=== PATIENT | female | born 2000 | race Caucasian/White ===

== ENCOUNTER 2021-01-12 11:54 | Emergency (ER) | payer BC, SELFPAY ==
--- NOTE | ~2021-01-12 | XR_ITS ---
EXAMINATION: XR HAND, LEFT CLINICAL INFORMATION: Left thumb pain. Trauma. COMPARISON: None TECHNIQUE: PA, lateral, and oblique views of the left hand. FINDINGS: Alignment is normal in the hand and wrist. Bones, joints and soft tissues have a normal appearance. No evidence of fracture or subluxation. No radiopaque foreign body or soft tissue gas. XR/XR hand LT 2V IMPRESSION: Normal left hand.
[2021-01-12 11:57] VITALS: BP 125/85; PULSE 98; RESP 16; TEMP 36.8; O2SAT 98; BMI 23.3
--- NOTE | 2021-01-12 12:55 | ED.EXTPRO ---
HPI - Extremity Problem General Chief complaint: Extremity Injury, Upper Stated complaint: finger pain Time Seen by Provider: 01/12/21 12:06 Source: patient Mode of arrival: ambulatory Limitations: no limitations History of Present Illness HPI Narrative: 20 yo female here with left thumb pain and swelling status post crush injury which occurred today. The patient tells me that her hand got slammed in a door and now she has pain and swelling to her left thumb. Related Data Allergies Allergy/AdvReac Type Severity Reaction Status Date / Time cephalexin [CEPHALEXIN] Allergy Unknown ANGIOEDEMA Unverified 05/24/20 16:58 latex [LATEX] Allergy Unknown THROAT Unverified 05/24/20 16:58 ITCHING montelukast [From SINGULAIR] Allergy Unknown UNKNOWN Unverified 05/24/20 16:58 sertraline [From ZOLOFT] Allergy Unknown UNKNOWN Unverified 05/24/20 16:58 Review of Systems Review of Systems: Yes all other systems are reviewed and are negative Constitutional: Constitutional: Reports no additional constitutional complaints, Denies body ache(s), Denies chills, Denies fever(s), Denies headache(s) and Denies weakness Eyes: Eyes: Reports no additional eye complaints and Denies change in vision ENT: Reports system reviewed and no additional complaints, except as documented, Denies dizziness, Denies headache(s), Denies nasal congestion, Denies nasal discharge and Denies neck pain Cardiovascular: Cardiovascular: Reports no additional cardiovascular complaints, Denies chest pain, Denies leg edema and Denies dyspnea Respiratory: Respiratory: Reports no additional respiratory complaints, Denies cough and Denies dyspnea Gastrointestinal: Gastrointestinal: Reports no additional gastrointestinal complaints, Denies abdominal pain, Denies diarrhea, Denies nausea and Denies vomiting Genitourinary: Genitourinary: Reports no additional female genitourinary complaints and Denies urinary incontinence Musculoskeletal: Musculoskeletal: Reports no additional musculoskeletal complaints, Denies back pain, Reports arthralgias, Reports joint swelling, Denies neck pain, Denies numbness and Denies tingling Integumentary/Breasts: Skin/Breast: Reports system reviewed and no additional complaints, except as docu and Denies rash Neurologic: Reports system reviewed and no additional complaints, except as documented, Denies Abnormal speech present, Denies dizziness, Denies headache(s), Denies numbness, Denies tingling and Denies weakness [facility] Past Medical History Attestation statement: The following information was validated with the patient. Source: old records reviewed and nursing notes reviewed Medical History Anxiety Asthma Endometriosis Fibromyalgia Migraines Orthostatic syncope Vaso-vagal reaction Social History Social History Advance Directives: No Advance Directives Information Provided: No Patient : No Physical Exam Vital Signs: Vital Signs: Last Vital Signs Temp 98.2 F 01/12/21 11:57 Pulse 98 01/12/21 11:57 Resp 16 01/12/21 11:57 BP 125/85 01/12/21 11:57 Pulse Ox 98 01/12/21 11:57 Body Mass Index 23.3 Const: General: cooperative, healthy appearing, comfortable and no acute distress Orientation/consciousness: patient oriented x3 Limitations: no limitations HENMT: Head: Yes normal to inspection Ears: hearing grossly normal bilaterally General nose exam: Normal external nose present Face and sinus: Yes normal facial exam Mouth: Normal oral and palatal mucosa present Throat: Yes posterior oropharynx normal Eyes: General: appearance normal, both eyes and all related structures Pupils: Equal, round and reactive pupils present Neck: Neck: Yes normal visual inspection Chest: Chest palpation & inspection: normal inspection of the chest Resp: Effort & Inspection: normal respiratory effort Auscultation: clear to auscultation bilaterally Cardio: Rate: regular rate Rhythm: regular rhythm Peripheral pulses: Peripheral pulses 2+ throughout GI: Inspection: Yes normal to inspection Palpation (GI): Soft to palpation and nontender Auscultation: normal bowel sounds Back/Spine/Pelvis: Thoracic/Lumbar Spine: thoracic and lumbar spine normal to inspection Skin: General skin exam: no rashes or lesions noted Neuro: General: patient oriented x3, no focal motor deficits and normal sensation to monofilament Cranial nerves: Yes Equal, round and reactive pupils present Cognition (Neuro): normal cognition Speech: No Abnormal speech present Gait exam (Neuro): Normal gait present Motor exam (neuro): 5/5 motor strength present throughout Extrem: Other: There is swelling and bruising to the distal left thumb with a subungual hematoma noted. Patient has pain with flexion and extension of the digit but is able. Neurovascular intact distally General: Yes normal to inspection Course Course Course Narrative: Crush injury to left thumb now with pain, swelling and subungual hematoma. Will need x-rays, trephination of the digit. 1415-x-rays negative for bony abnormality. Successful trephination. Patient was provided a dressing. Reviewed worrisome signs and symptoms such as fever, redness, drainage and when to return to the emergency department. Comfortable with discharge home. Procedures Procedure Narrative Procedure Narrative: Trepination of the left thumb nail with immediate improvement. Pt tolerated well. MDM - Extremity (Nontraumatic) Medical Records Attestation: I reviewed the patient's medical records. Lab Data Attestation: I reviewed the patient's lab results. Imaging Data left hand x-ray: Attestation: I personally reviewed and interpreted this imaging study as follows: Radiologist's impression: EXAMINATION: XR HAND, LEFT CLINICAL INFORMATION: Left thumb pain. Trauma. COMPARISON: None TECHNIQUE: PA, lateral, and oblique views of the left hand. FINDINGS: Alignment is normal in the hand and wrist. Bones, joints and soft tissues have a normal appearance. No evidence of fracture or subluxation. No radiopaque foreign body or soft tissue gas. XR/XR hand LT 2V IMPRESSION: Normal left hand. Discharge Plan Discharge Clinical Impression: Contusion Qualifiers: Encounter type: initial encounter Contusion area: finger Finger: thumb Damage to nail status: with damage Laterality: left Qualified Code(s): S60.112A - Contusion of left thumb with damage to nail, initial encounter Hematoma, subungual, finger Qualifiers: Encounter type: initial encounter Qualified Code(s): S60.10XA - Contusion of unspecified finger with damage to nail, initial encounter Patient Disposition: Home, Self-Care Instructions: Subungual Hematoma (ED) Additional Instructions: Ice to the area, elevation The finger may drain some blood for the next few hours or day. Change the dressing daily as discussed Referrals: Physician,Unknown [Primary Care Provider] - 2 days Interventions: ED Discharge Assessment Last Done: 01/12/21 14:06 Discharge Date/Time: 01/12/21 14:08
== END 2021-01-12 14:08 | disposition home or self-care (01) ==
PROVIDERS: Emergency Provider Emergency Medicine
DX: S60.112A Contusion of left thumb with damage to nail, initial encounter (principal); W23.1XXA Caught, crushed, jammed, or pinched between stationary objects, initial encounter; Y93.89 Activity, other specified; Y92.810 Car as the place of occurrence of the external cause; Y99.9 Unspecified external cause status
CPT/HCPCS: 11740; 73120; 99283; 99284

== ENCOUNTER 2021-03-13 20:10 | Emergency (ER) | payer BC, SELFPAY ==
[2021-03-13 20:28] VITALS: BP 116/63; PULSE 100; RESP 17; TEMP 36.8; O2SAT 99; BMI 22.8
[2021-03-13 20:48] LABS: Glucose Urine UA NEG (NEG); Leukocyte Esterase Urine 2+ (NEG); Nitrite Urine NEG (NEG); PH 6.5 (5.0-8.0); Specific Gravity - Urine 1.015 (1.005-1.025); UACC Culture Trigger YES; Urine Blood 3+ (NEG); Urine Ketones NEG (NEG); Urine Protein TRACE MG/DL (NEG-TRACE)
[2021-03-13 20:56] LABS: Appearance Urine HAZY; Color Urine YELLOW
[2021-03-13 21:00] LABS: Bacteria Urine 2+ /LPF; Squamous Epithelial Cell Urine 1+ /LPF
--- NOTE | 2021-03-13 23:32 | ED.FEMALEGU ---
HPI - Female Genitourinary General Chief complaint: Urogenital-Female Stated complaint: UTI? Time Seen by Provider: 03/13/21 21:44 Source: patient Mode of arrival: ambulatory History of Present Illness HPI Narrative: 20-year-old female with a past medical history of anxiety, asthma, endometriosis, fibromyalgia, hemorrhagic cyst, migraines, vasovagal reaction, presenting to the ED complaining of dysuria and white vaginal discharge x today. Admits was sexually active a few nights ago prior to symptoms beginning. Denies fever, chills, abdominal pain, nausea /vomiting, vaginal bleeding. LMP 02/24/2021 MD elicited complaint: UTI Related Data Previous Rx's Medication Instructions Recorded nitrofurantoin monohyd/m-cryst 100 mg PO Q12H 5 Days #10 cap 03/14/21 [Macrobid] phenazopyridine [Pyridium] 200 mg PO TID PRN #6 tab 03/14/21 Allergies Allergy/AdvReac Type Severity Reaction Status Date / Time cephalexin [CEPHALEXIN] Allergy Intermediate ANGIOEDEMA Verified 03/13/21 20:28 latex [LATEX] Allergy Intermediate THROAT Verified 03/13/21 20:28 ITCHING montelukast [From SINGULAIR] Allergy Intermediate UNKNOWN Verified 03/13/21 20:28 sertraline [From ZOLOFT] Allergy Intermediate UNKNOWN Verified 03/13/21 20:28 Review of Systems Review of Systems: Constitutional: No Fever, No Chills, No Fatigue, No Malaise Cardiovascular: No Chest Pain, No SOB Respiratory: No Cough, No Dyspnea Gastrointestinal: No Nausea, No Vomiting, No Diarrhea, No Constipation, No Abdominal pain Genitourinary: No irregular bleeding, + Dysuria, No Urinary Frequency, No Hematuria, No Flank Pain, No Urinary Flow Changes Musculoskeletal: No joint pain, No Myalgias, No Joint Swelling Skin: No Skin Lesions, No rash Neuro: No Weakness, No Headache Yes all other systems are reviewed and are negative PMFSH Past Medical History Attestation statement: The following information was validated with the patient. Medical History (Updated 03/14/21 @ 00:10 by RADHA Bethea) Anxiety Asthma Endometriosis Fibromyalgia Hemorrhagic cyst Migraines Orthostatic syncope Vaso-vagal reaction Social History Social History Advance Directives: No Advance Directives Information Provided: No Patient : No Physical Exam Vital Signs: Vital Signs: Last Vital Signs Temp 98.2 F 03/13/21 20:28 Pulse 100 03/13/21 20:28 Resp 17 03/13/21 20:28 BP 116/63 03/13/21 20:28 Pulse Ox 99 03/13/21 20:28 Body Mass Index 22.8 Const: General: cooperative, healthy appearing and comfortable Orientation/consciousness: patient oriented x3 Limitations: no limitations HENMT: Head: Yes normal to inspection Ears: hearing grossly normal bilaterally General nose exam: Normal external nose present Face and sinus: Yes normal facial exam Eyes: General: appearance normal, both eyes and all related structures EOM: EOMs intact bilaterally Neck: Neck: Yes normal visual inspection Resp: Effort & Inspection: normal respiratory effort Cardio: Rate: regular rate Heart sounds: S1 normal heart sound present and S2 normal heart sound present GI: Inspection: Yes normal to inspection Palpation (GI): Soft to palpation, nontender, no guarding and not rigid : Other: white /clear vaginal discharge noted on pelvic exam, no vaginal bleeding. No adnexal or CMT. No appreciable masses. Cervical OS closed General: Yes no CVA tenderness Back/Spine/Pelvis: Back: no CVA tenderness Skin: Rashes: no rashes Wounds: no wounds Neuro: General: patient oriented x3 Gait exam (Neuro): Normal gait present Extrem: General: Yes normal to inspection Course Course Course Narrative: - UA with leuk esterase, rbc's, multiple wbc's and bacteria concerning for UTI and STI - patient was tested for STIs, although has angioedema reaction to Keflex >> will be prophylactically treated with IM Gentamicin and 2g p.o. Azithromycin in the ED. Also given 1st dose of Macrobid in the ED patient would like results of her cultures - details of her visit kept confidential, her personal cell phone number for culture results is [phone] MDM - Female Genitourinary MDM Narrative Medical decision making narrative: 20-year-old female with a past medical history of anxiety, asthma, endometriosis, fibromyalgia, hemorrhagic cyst, migraines, vasovagal reaction, presenting to the ED complaining of dysuria and white vaginal discharge x today. On exam VSS, NAD /well-appearing, physical exam as above. Concern for UTI/STI. Low concern for PID plan: UA, STI testing. Patient agreeable to empiric STI testing in the ED today Lab Data Labs: Lab Results 03/13/21 Range/Units 20:41 Urine Color YELLOW Urine Appearance HAZY Urine pH 6.5 (5.0-8.0) Ur Specific [place] 1.015 (1.005-1.025) Urine Protein TRACE (NEG-TRACE) MG/DL Urine Glucose (UA) NEG (NEG) MG/DL Urine Ketones NEG (NEG) MG/DL Urine Blood 3+ H (NEG) Urine Nitrite NEG (NEG) Ur Leukocyte Esterase 2+ H (NEG) Urine RBC 76-150 H (0) /HPF Urine WBC 76-150 H (0-4) /HPF Ur Squamous Epith Cells 1+ /LPF Urine Bacteria 2+ /LPF Discharge Plan Discharge Clinical Impression: Urinary tract infection, Vaginal discharge Patient Disposition: Home, Self-Care Instructions: Urinary Tract Infection in Women (ED), Vaginal Discharge (ED) Additional Instructions: you have a urinary tract infection, Macrobid is an antibiotic, take as prescribed Pyridium will help with urinary discomfort, take as needed Your also tested for sexually transmitted infections including gonorrhea/ chlamydia, Trichomonas, and bacterial vaginosis. You were treated for gonorrhea and chlamydia today in the emergency department You need to refrain from any sexual contact until your cultures have resulted in next couple days, you will be contacted with positive results. Inform her partners of your results of the can be tested and treated as well Consider getting retested for sexually transmitted infections 2-3 weeks after treatment to ensure the infection is gone. You should also go to [facility] to be tested for other sexually transmitted infections we did not test for today Prescriptions: New nitrofurantoin monohyd/m-cryst [Macrobid] 100 mg capsule 100 mg PO Q12H 5 Days Qty: 10 RF: 0 phenazopyridine [Pyridium] 200 mg tablet 200 mg PO TID PRN (Reason: pain) Qty: 6 RF: 0 Referrals: Linda Yeboah MD [Primary Care Provider] - 2 days Juma Hansen MD [Physician] - 1 week Interventions: ED Discharge Assessment Last Done: 03/14/21 00:39 Discharge Date/Time: 03/14/21 00:50
--- NOTE | 2021-03-13 23:39 | PC.NURSE ---
AT PATIENTS REQUEST MOTHER WAS ASKED TO LEAVE ROOM DURING EXAM. MOTHER ESCORTED TO RP ROOM. PELVIC EXAM DONE. CULTURES SENT. PT TOLL WELL. MOTHER ASKED TO RETURN TO ROOM PER PATIENT REQUEST.
[2021-03-14] MEDS: Gentamicin Sulfate 80 MG/2 ML VIAL 240 MG IM (00:04)
[2021-03-14] MEDS: Nitrofurantoin Monohyd/M-Cryst 100 MG CAPSULE PO (00:05)
[2021-03-14] MEDS: Azithromycin 500 MG TABLET 2000 MG PO (00:05)
--- NOTE | 2021-03-14 00:17 | PC.NURSE ---
MOTHER IN WITH PATIENT. PT GAVE THIS NURSE PERMISSION TO TALK WITH MOTHER ABOUT TREATMENT PLAN. MEDS GIVEN. WILL MONITOR.
--- NOTE | 2021-03-14 01:08 | PC.NURSE ---
VITALS TAKEN PRIOR TO D/C P 97, [id number], BP 126/84.
[2021-03-14 02:33] LABS: CT PCR NOT DETECTED (Not Detect.); NG PCR NOT DETECTED (Not Detect.)
[2021-03-14 08:51] LABS: BV Int Neg Control Negative (Negative); BV Int Pos Control Positive (Positive)
== END 2021-03-14 00:50 | disposition home or self-care (01) ==
PROVIDERS: Physician Assistant; Emergency Provider Internal Medicine; PCP Pediatrics Adolescent Medicine
DX: N39.0 Urinary tract infection, site not specified (principal); N89.8 Other specified noninflammatory disorders of vagina
CPT/HCPCS: 36415; 81001; 81003; 87086; 87088; 87186; 87480; 87491; 87510; 87591; 87660; 96372; 99284; J1580

== ENCOUNTER 2022-08-22 12:36 | Outpatient (REF) | payer BC, SELFPAY ==
[2022-08-22 14:32] LABS: Appearance Urine Clear; Color Urine Dark Yellow; Glucose Urine UA Negative (Negative); Leukocyte Esterase Urine Trace (Negative); Nitrite Urine Positive (Negative); PH 6.5 (5.0-9.0); Specific Gravity - Urine 1.025 (1.005-1.025); UMIC TRIGGER UA YES; Urine Blood Negative (Negative); Urine Ketones Negative (Negative); Urine Protein Trace mg/dL (Neg-Trace)
[2022-08-22 14:48] LABS: Bacteria Urine None Seen (None Seen); Calcium Oxalate Crystals Urine Present; Hyaline Casts Urine 0-2 /LPF (0-2); RBC Urine 0-2 /HPF (0-2); WBC Urine 0-5 /HPF (0-5)
== END 2022-08-22 12:37 | disposition home or self-care (01) ==
LOC: HO.LAB 12:36
PROVIDERS: PCP Pediatrics Adolescent Medicine; Visit Provider Pediatrics Adolescent Medicine
DX: R30.0 Dysuria (principal)
CPT/HCPCS: 81001; 87086; 87147

== ENCOUNTER 2023-07-09 11:12 | Outpatient (REF) | payer BC, SELFPAY ==
[2023-07-09 14:05] LABS: Appearance Urine Clear; Color Urine Dark Yellow; Glucose Urine UA Negative (Negative); Leukocyte Esterase Urine Trace (Negative); Nitrite Urine Positive (Negative); PH 6.5 (5.0-9.0); UMIC TRIGGER UA YES; Urine Blood Negative (Negative); Urine Ketones Negative (Negative); Urine Protein Trace mg/dL (Neg-Trace)
[2023-07-09 14:17] LABS: Bacteria Urine 1+ (None Seen); Hyaline Casts Urine 0-2 /LPF (0-2); RBC Urine 0-2 /HPF (0-2)
== END 2023-07-09 11:13 | disposition home or self-care (01) ==
LOC: HO.LAB 11:12
PROVIDERS: PCP Pediatrics Adolescent Medicine; Visit Provider Pediatrics Adolescent Medicine
DX: R30.0 Dysuria (principal)
CPT/HCPCS: 81001; 81003; 87086

== ENCOUNTER 2024-01-02 18:59 | Emergency (ER) | payer SELFPAY ==
[2024-01-02 19:22] VITALS: BP 146/89; PULSE 96; RESP 16; TEMP 36.6; O2SAT 100; BMI 23.2
--- NOTE | 2024-01-02 19:26 | ED_ITS ---
HPI - Female Genitourinary General Chief complaint: Urogenital-Female Stated complaint: ?UTI Time Seen by Provider: 01/02/24 21:00 Source: patient, RN notes reviewed and old records reviewed Mode of arrival: ambulatory Limitations: no limitations History of Present Illness HPI Narrative: 23-year-old female presents for evaluation of burning with urination and left flank pain. Patient reports that she started with lower abdominal pain, burning with urination and urinary frequency 1 week ago. She states that she has been using azo which has been masking the symptoms somewhat but her symptoms are worsening She reports continued lower abdominal pain and worsening left flank pain. Denies any fevers, chills She has no other complaints or concerns at this time Denies any vaginal bleeding or discharge Related Data Previous Rx's ?Medication ?Instructions ?Recorded nitrofurantoin 100 mg PO Q12H 5 days #10 caps 03/14/21 monohydrate/macrocrystals 100 mg capsule (Macrobid) phenazopyridine 200 mg tablet 200 mg PO TID PRN pain 6 doses #6 03/14/21 (Pyridium) tabs sulfamethoxazole 800 1 tab PO Q12H #14 tabs 01/02/24 mg-trimethoprim 160 mg tablet (Bactrim DS) doxycycline hyclate 100 mg capsule 100 mg PO BID 7 days #14 caps 01/06/24 Allergies Allergy/AdvReac Type Severity Reaction Status Date / Time cephalexin [CEPHALEXIN] Allergy Intermediate ANGIOEDEMA Verified 01/02/24 19:25 latex [LATEX] Allergy Intermediate THROAT Verified 01/02/24 19:25 ITCHING montelukast [From SINGULAIR] Allergy Intermediate UNKNOWN Verified 01/02/24 19:25 sertraline [From ZOLOFT] Allergy Intermediate UNKNOWN Verified 01/02/24 19:25 Review of Systems 2 Constitutional: Constitutional: Denies body ache(s), Denies chills and Denies fever(s) Eyes: Eyes: Denies blurry vision ENT: Denies sore throat Cardiovascular: Cardiovascular: Denies chest pain Gastrointestinal: Gastrointestinal: Reports abdominal pain, Denies nausea and Denies vomiting Genitourinary: Genitourinary: Reports dysuria and Reports flank pain Musculoskeletal: Musculoskeletal: Denies back pain Integumentary/Breasts: Skin/Breast: Denies rash PMFSH Past Medical History Medical History (Updated 01/03/24 @ 00:00 by Estephania Daemon) Hemorrhagic cyst Endometriosis Migraines Fibromyalgia Anxiety Asthma Orthostatic syncope Vaso-vagal reaction Social History Social History (System 10/02/21 @ 14:27 by Sally Luna) Advance Directives: No Advance Directives Information Provided: No Physical Exam 2 Vital Signs: Vital Signs: Last Vital Signs Temp 98 F 01/02/24 21:23 Pulse 88 01/02/24 21:23 Resp 18 01/02/24 21:23 BP 140/78 H 01/02/24 21:23 Pulse Ox 100 01/02/24 21:23 O2 Del Method Room Air 01/02/24 21:23 BMI result Body Mass Index 23.2 Const: General: healthy appearing, comfortable, no acute distress, alert and awake Nutritional Appearance: well nourished Orientation/consciousness: p atient oriented x3 HEENT: Head: Yes normocephalic and Yes atraumatic Eyes: Eyelids: Yes eyelids normal Conjunctivae: conjunctivae normal S clerae: sclerae normal Corneas: corneas normal Pupils: Equal, round and reactive pupils present EOM: EOMs intact bilaterally Neck: Neck: Yes full ROM Resp: Effort & Inspection: normal respiratory effort, able to speak in complete sentences and not labored GI: Inspection: No distended Palpation (GI): Soft to palpation, not firm, Tenderness to palpation present (GI) suprapubicly, no guarding and not rigid Skin: General skin exam: elasticity normal Neuro: General: patient oriented x3 Cranial nerves: Yes Equal, round and reactive pupils present and Yes Bilaterally intact EOM present Cognition (Neuro): normal cognition Course Course Course Narrative: RME performed by Naina Benton PA-C. Patient is a 23 year old assigned female at presenting to the emergency department with dysuria and bilateral flank pain. Patient states that she gets frequent urinary tract infections. Detailed physical exam and review of systems are deferred to the shingle shearing machine operator. Labs ordered. Patient placed back in the waiting room pending room availability and results. Reevaluation(s) Reevaluation #1: + CT patient was sent doxycycline I did discuss these results with patient educated her on safe sexual practices, treatment and [facility], TAB history. I did also report on the [place] department of public [facility] [place] of Infectious Disease and laboratory studies page online this positive result. I did not treat her for gonorrhea as she did test negative for this. Time: 17:30 Medications Administered Discontinued Medications Generic Name Dose Route Start Last Admin Trade Name Kumar PRN Reason Stop Dose Admin Trimethoprim/Sulfamethoxazole 1 tab 01/02/24 21:15 01/02/24 21:22 Sulfamethox/Trimeth 800/160 Tablet PO 01/02/24 21:16 1 tab ONCE ONE Administration Medical Decision Making Medical Decision Making [facility] Narrative: 23-year-old female presents for evaluation of UTI symptoms, burning with urination and more recently flank pain. Clinically she has pyelonephritis. She has not septic. She has no leukocytosis. Her renal function within normal limits. She is slightly hypertensive which may related to her level of discomfort. Will discharge the patient with 1 week's course of Bactrim. She has an allergy to cephalosporins Differential Diagnosis Differential Diagnoses: The differential diagnosis associated with the presentation includes UTI Pyelonephritis PID less likely Flank pain Admission/Observation Consideration of admission/observation: Escalation of care including admission/observation considered Consider admission for pyelonephritis, but the patient is afebrile, not septic and is able to tolerate p.o. Lab Data [facility] Lab Attestation statement: I reviewed the patient's lab results. See above 01/02/24 19:39 01/02/24 19:39 Labs: Lab Results 01/02/24 01/02/24 Range/Units 19:39 19:40 WBC 10.8 (4.8-10.8) X10*3/uL RBC 4.75 (4.20-5.50) X10*6/uL Hgb 14.5 (12.0-16.0) g/dl Hct 41.6 (37.0-47.0) % MCV 87.6 (80.0-98.0) fL MCH 30.5 (27.0-33.0) pg MCHC 34.9 (31.0-35.0) g/dl RDW 12.4 (11.0-16.0) % Plt Count 230 (160-400) X10*3/uL MPV 10.4 (9.4-12.3) fL Immature Gran % (Auto) 0.2 (0.0-0.4) % Neut % (Auto) 62.1 (45-73) % Lymph % (Auto) 29.6 (20-40) % [place] % (Auto) 7.0 (2-11) % Eos % (Auto) 0.6 (0-4) % Baso % (Auto) 0.5 (0-2) % Lymph # (Auto) 3.2 (1.2-4.9) X10*3/uL [place] # (Auto) 0.8 (0.1-1.2) X10*3/uL Eos # (Auto) 0.1 (0.0-0.4) X10*3/uL Baso # (Auto) 0.1 (0.0-0.2) X10*3/uL Abs Immat Gran (auto) 0.02 (0.00-0.03) X10*3/uL Absolute Neuts (auto) 6.7 (2.0-8.3) x10*3/uL Absolute Nucleated RBC 0.000 (0.0-0.012) X10*3/uL Nucleated RBC % (auto) 0.0 (0.0-0.2) /100WBC Sodium 141 (135-145) mmol/L Potassium 3.7 (3.3-5.1) mmol/L Chloride 105 (96-108) mmol/L Carbon Dioxide 27 (22-29) mmol/L Anion Gap 13 (12-20) BUN 13 (9-16) mg/dL Creatinine 0.84 (0.5-1.4) mg/dL Estim Creat Clear Calc 94.5 Estimated GFR > 60 Random Glucose 84 (60-115) mg/dL Calcium 9.8 (8.4-10.2) mg/dL Magnesium 2.2 (1.6-2.6) mg/dL Total Bilirubin 1.0 (0.0-1.0) mg/dL AST 22 (5-31) U/L ALT 23 (0-31) U/L Alkaline Phosphatase 72 (39-117) U/L Total Protein 8.0 (6.5-8.0) g/dL Albumin 4.8 (3.5-5.0) g/dL Urine Color Dark Yellow Urine Appearance Clear Urine pH 6.0 (5.0-9.0) Ur Specific [place] 1.010 (1.005-1.025) Urine Protein Negative (Neg-Trace) mg/dL Urine Glucose (UA) Negative (Negative) mg/dL Urine Ketones Negative (Negative) mg/dL Urine Blood Trace H (Negative) Urine Nitrite Positive H (Negative) Ur Leukocyte Esterase Moderate (2+) H (Negative) Urine RBC 0-2 (0-2) /HPF Urine WBC 21-50 (0-5) /HPF Ur Squamous Epith Cells 0-2 (0-2) /HPF Urine Bacteria None Seen (None Seen) Hyaline Casts 0-2 (0-2) /LPF Chlam trachomat DNA PCR DETECTED A (Not Detect.) N.gonorrhoeae DNA (PCR) NOT DETECTED (Not Detect.) Discharge Plan Discharge Clinical Impression: Pyelonephritis Patient Disposition: Home, Self-Care Instructions: Kidney Infection (ED) Additional Instructions: Take Bactrim twice daily for the next 7 days Drink lots of fluids Follow-up with your primary doctor Return for new or worsening symptoms, especially you develop any fevers Prescriptions: New sulfamethoxazole-trimethoprim [Bactrim DS] 800-160 mg tablet 1 tab PO Q12H Qty: 14 0RF doxycycline hyclate 100 mg capsule 100 mg PO BID 7 Days Qty: 14 0RF No Action nitrofurantoin monohyd/m-cryst [Macrobid] 100 mg capsule 100 mg PO Q12H 5 Days Qty: 10 0RF Rx Instructions: must administer with a meal/food phenazopyridine [Pyridium] 200 mg tablet 200 mg PO TID PRN (Reason: pain) Qty: 6 0RF Stand Alone Forms: Work/School Release Interventions: ED Discharge Assessment Last Done: 01/02/24 21:23 Discharge Date/Time: 01/02/24 21:26 Print Language: Romanian
[2024-01-02 19:46] LABS: MANUAL DIFF FLAG NO
[2024-01-02 19:48] LABS: Appearance Urine Clear; Color Urine Dark Yellow; Glucose Urine UA Negative (Negative); Leukocyte Esterase Urine Moderate (2+) (Negative); Nitrite Urine Positive (Negative); UMIC TRIGGER UACC YES; Urine Blood Trace (Negative); Urine Ketones Negative (Negative); Urine Protein Negative (Neg-Trace)
[2024-01-02 19:49] LABS: Basophils Absolute Auto 0.1 X10*3/uL (0.0-0.2); Basophils Percent Auto 0.5 % (0-2); Eosinophils Absolute Auto 0.1 X10*3/uL (0.0-0.4); Eosinophils Percent Auto 0.6 % (0-4); Hematocrit 41.6 % (37.0-47.0); Hemoglobin 14.5 g/dl (12.0-16.0); Imm Gran Abs Auto 0.02 X10*3/uL (0.00-0.03); Imm Gran Pct Auto 0.2 % (0.0-0.4); Lymphocytes Absolute Auto 3.2 X10*3/uL (1.2-4.9); Lymphocytes Percent Auto 29.6 % (20-40); Mean Corpuscular HGB Conc 34.9 g/dl (31.0-35.0); Mean Corpuscular Hemoglobin 30.5 pg (27.0-33.0); Mean Corpuscular Volume 87.6 fL (80.0-98.0); Mean Platelet Volume 10.4 fL (9.4-12.3); Monocytes Absolute Auto 0.8 X10*3/uL (0.1-1.2); Neutrophils Absolute Auto 6.7 x10*3/uL (2.0-8.3); Neutrophils Percent Auto 62.1 % (45-73); Platelet Count 230 X10*3/uL (160-400); Red Blood Count 4.75 X10*6/uL (4.20-5.50); Red Cell Distribution Width 12.4 % (11.0-16.0); White Blood Count 10.8 X10*3/uL (4.8-10.8)
[2024-01-02 19:59] LABS: Bacteria Urine None Seen (None Seen); Hyaline Casts Urine 0-2 /LPF (0-2); RBC Urine 0-2 /HPF (0-2); Squamous Epithelial Cell Urine 0-2 /HPF (0-2); UACC Culture Trigger YES; WBC Urine 21-50 /HPF (0-5)
[2024-01-02 20:02] LABS: Alanine Aminotransferase 23 U/L (0-31); Albumin Level 4.8 g/dL (3.5-5.0); Alkaline Phosphatase 72 U/L (39-117); Anion Gap 13 (12-20); Aspartate Amino Transferase 22 U/L (5-31); Blood Urea Nitrogen 13 mg/dL (9-16); Calcium 9.8 mg/dL (8.4-10.2); Carbon Dioxide 27 mmol/L (22-29); Chloride 105 mmol/L (96-108); Creatinine Clr Calc Pharmacy 94.5; Estimated Glomerular Filt Rate > 60; Glucose Random 84 mg/dL (60-115); Magnesium 2.2 mg/dL (1.6-2.6); Potassium 3.7 mmol/L (3.3-5.1); Sodium 141 mmol/L (135-145)
[2024-01-02 20:24] VITALS: BP 140/78; PULSE 88; RESP 18; TEMP 36.6; O2SAT 100
[2024-01-02] MEDS: Sulfamethox/Trimeth 800/160 TABLET 1 TAB PO (21:22)
[2024-01-02 21:23] VITALS: BP 140/78; PULSE 88; RESP 18; TEMP 36.6; O2SAT 100
[2024-01-03 01:15] LABS: CT PCR DETECTED (Not Detect.); NG PCR NOT DETECTED (Not Detect.)
== END 2024-01-02 21:26 | disposition home or self-care (01) ==
PROVIDERS: Physician Assistant Medical; Emergency Provider Internal Medicine
DX: N12 Tubulo-interstitial nephritis, not specified as acute or chronic (principal); R30.0 Dysuria
CPT/HCPCS: 0353U; 36415; 80053; 81001; 83735; 85025; 87086; 99283

== ENCOUNTER 2024-07-23 22:30 | Emergency (ER) | payer BC, SELFPAY ==
--- NOTE | ~2024-07-23 | US_ITS ---
EXAMINATION: US OBSTETRICAL ULTRASOUND CLINICAL INFORMATION: Abdominal pain, cramping. Spotting. COMPARISON: None available. TECHNIQUE: Transabdominal and endovaginal grayscale ultrasonography of the pelvis. FINDINGS: A gestational sac in a fundal location is identified in within the uterus. A yolk sac is identified. No pole visualized. No subchorionic fluid collections identified. Mean gestational sac diameter is 1.11 cm (5 week 6 day). No myometrial lesions noted. The right ovary measures 2.5 cm x 2.6 x 2.1 cm. The left ovary measures 2.07 x 2.1 x 2.2 cm. The ovaries are normal in grayscale appearance. No abnormal free peritoneal fluid collections identified. cardiac activity is not identified possibly secondary to early gestation. US/US OB pelvic and transvaginal IMPRESSION: *Single fundal implantation intrauterine gestation, sonographic estimated gestational age 5 weeks 6 day. *Abnormal appearance of the ovaries. *No abnormal free intraperitoneal fluid identified. Electronically signed by: Hermilo Melissa MD 07/24/2024 01:34 AM [facility]
[2024-07-23 22:44] VITALS: BP 139/89; PULSE 76; RESP 16; TEMP 36.9; O2SAT 100; BMI 23.8
[2024-07-23 23:02] LABS: Appearance Urine Clear; Color Urine Yellow; Glucose Urine UA Negative (Negative); Leukocyte Esterase Urine Trace (Negative); Nitrite Urine Negative (Negative); PH 6.5 (5.0-9.0); UMIC TRIGGER UACC YES; Urine Blood Negative (Negative); Urine Ketones Negative (Negative); Urine Protein Negative (Neg-Trace)
[2024-07-23 23:05] LABS: UPreg QC Valid YES; Urine Pregnancy POSITIVE (NEGATIVE)
[2024-07-23 23:07] LABS: Bacteria Urine Trace (None Seen); Hyaline Casts Urine 0-2 /LPF (0-2); RBC Urine 0-2 /HPF (0-2); WBC Urine 0-5 /HPF (0-5)
[2024-07-23 23:14] LABS: MANUAL DIFF FLAG NO
[2024-07-23 23:15] LABS: Basophils Percent Auto 0.5 % (0-2); Eosinophils Absolute Auto 0.1 X10*3/uL (0.0-0.4); Eosinophils Percent Auto 1.6 % (0-4); Hematocrit 36.6 % (37.0-47.0); Hemoglobin 12.9 g/dl (12.0-16.0); Imm Gran Abs Auto 0.02 X10*3/uL (0.00-0.03); Imm Gran Pct Auto 0.2 % (0.0-0.4); Lymphocytes Absolute Auto 3.3 X10*3/uL (1.2-4.9); Lymphocytes Percent Auto 40.9 % (20-40); Mean Corpuscular HGB Conc 35.2 g/dl (31.0-35.0); Mean Corpuscular Hemoglobin 31.1 pg (27.0-33.0); Mean Corpuscular Volume 88.2 fL (80.0-98.0); Monocytes Absolute Auto 0.8 X10*3/uL (0.1-1.2); Monocytes Percent Auto 9.5 % (2-11); Neutrophils Absolute Auto 3.8 x10*3/uL (2.0-8.3); Neutrophils Percent Auto 47.3 % (45-73); Platelet Count 196 X10*3/uL (160-400); Red Blood Count 4.15 X10*6/uL (4.20-5.50); Red Cell Distribution Width 12.1 % (11.0-16.0); White Blood Count 8.1 X10*3/uL (4.8-10.8)
[2024-07-23 23:32] LABS: Anion Gap 11 (12-20); Blood Urea Nitrogen 12 mg/dL (9-16); Calcium 9.4 mg/dL (8.4-10.2); Carbon Dioxide 22 mmol/L (22-29); Chloride 108 mmol/L (96-108); Creatinine Clr Calc Pharmacy 113.4; Estimated Glomerular Filt Rate > 60; Glucose Random 83 mg/dL (60-115); Potassium 3.5 mmol/L (3.3-5.1); Sodium 137 mmol/L (135-145)
[2024-07-23 23:50] LABS: HCG Quantitative 16441 mIU/mL
--- NOTE | 2024-07-24 00:10 | ED_ITS ---
HPI - General Adult General Chief complaint: General Medical Stated complaint: just found she's /having cramping Time Seen by Provider: 07/23/24 23:54 Source: patient and family Mode of arrival: ambulatory Limitations: no limitations History of Present Illness ED Provider: Dr. Shelly Bustamante HPI narrative: Patient comes to the emergency room accompanied by her significant other. Patient states that yesterday she found out that she is . Patient states that she has noticed that over last 2 weeks she has been having intermittently cramping and occasional vaginal spotting. Patient states that the last time she had her menstrual period was June 11. Patient states this is the 1st time that she is known to be . Denies any significant abdominal pain other than the cramping. Related Data Previous Rx's ?Medication ?Instructions ?Recorded nitrofurantoin 100 mg PO Q12H 5 days #10 caps 03/14/21 monohydrate/macrocrystals 100 mg capsule (Macrobid) phenazopyridine 200 mg tablet 200 mg PO TID PRN pain 6 doses #6 03/14/21 (Pyridium) tabs sulfamethoxazole 800 1 tab PO Q12H #14 tabs 01/02/24 mg-trimethoprim 160 mg tablet (Bactrim DS) doxycycline hyclate 100 mg capsule 100 mg PO BID 7 days #14 caps 01/06/24 Allergies Allergy/AdvReac Type Severity Reaction Status Date / Time cephalexin [CEPHALEXIN] Allergy Intermediate ANGIOEDEMA Verified 07/23/24 22:46 latex [LATEX] Allergy Intermediate THROAT Verified 07/23/24 22:46 ITCHING montelukast [From SINGULAIR] Allergy Intermediate UNKNOWN Verified 07/23/24 22:46 sertraline [From ZOLOFT] Allergy Intermediate UNKNOWN Verified 07/23/24 22:46 Review of Systems 2 Review of Systems: Constitutional : No Weight loss, No Fever, No Chills, No Night Sweats, No Fatigue, No Malaise ENT/Mouth : No Hearing loss, No Ear Pain, No Nasal Congestion, No Sinus Pain, No Hoarseness, No sore throat, No Rhinorrhea, No Swallowing Difficulty Eyes: No Eye Pain, No Swelling, No Redness, No Foreign Body, No Discharge, No Vision Changes Cardiovascular : No Chest Pain, No SOB, No Dyspnea on Exertion, No Orthopnea, No Edema, No Palpitations Respiratory : No Cough, No Sputum, No Wheezing, No Smoke Exposure, No Dyspnea Gastrointestinal : No Nausea, No Vomiting, No Diarrhea, No Constipation, complaining of abdominal cramping Genitourinary : Complaining of vaginal spotting, No Dysuria, No Urinary Frequency, No Hematuria, No Urinary Incontinence, No Urgency, No Flank Pain, No Urinary Flow Changes, No Hesitancy Musculoskeletal : No joint pain, No Myalgias, No Joint Swelling Skin : No Skin Lesions, No rash Neuro : No Weakness, No Numbness, No Paresthesias, No Loss of Consciousness, No Dizziness, No Headache Psych : No Anxiety/Panic, No Depression, No SI/HI/AH/VH, No Social Issues, Heme/Lymph: No Bruising, No Bleeding,No Lymphadenopathy Endocrine : No Polyuria, No Polydipsia, No Temperature Intolerance PMFSH Past Medical History Medical History Hemorrhagic cyst Endometriosis Migraines Fibromyalgia Anxiety Asthma Orthostatic syncope Vaso-vagal reaction Social History Social History (System 10/02/21 @ 14:27 by Sally Luna) Advance Directives: No Advance Directives Information Provided: No Do you have a plan to hurt others: No Plan Physical Exam ED Vital Signs: Vital Signs - 24 hr 07/23/24 22:44 Temperature 98.5 F Pulse Rate 76 Respiratory Rate 16 Blood Pressure 139/89 Pulse Oximetry 100 Oxygen Delivery Method Room Air BMI result Body Mass Index 23.8 Const Other: Appearance: Alert. Oriented X3. No acute distress. Eyes: Pupils equal, round and reactive to light. ENT: Pharynx normal. Neck: Normal inspection. Neck supple. No lymph nodes noted. No crepitus CVS: Normal heart rate and rhythm. Pulses normal. Normal S1 and S2 Respiratory: No respiratory distress. Breath sounds normal. No Wheezing. No rales Abdomen: Soft and nontender. No rigidity. No distention. : Cervix is closed, there is no blood present, no abnormal vaginal discharge. Skin: Skin warm and dry. Normal skin color. Normal skin turgor. Extremities: No lower extremity edema. No Lacerations. No Rash Neuro: Oriented X 3. No motor deficit. No sensory deficit. Moving all extremities. No slurred speech. CN 2 through 12 grossly intact Psych: calm, cooperative, normal affect Medical Decision Making Medical Decision Making [facility] Narrative: My interpretation of labs: Patient's white blood cell count 8.1, chemistry within normal limits, beta HCG 16,441. -reviewing patient's serology reports, earlier this year patient had chlamydia. During the pelvic exam, we obtained serology test for gonorrhea, chlamydia, bacterial vaginosis and Trichomonas -OB ultrasound shows an intrauterine , gestational age of 5 weeks 6 days., no pole or heart rate dizzy early dates. Patient's blood type, O negative -I discussed the patient with Dr. Jade khalil whether patient should be getting RhoGAM. Recommendations: Check for antibody screen, if negative, proceed with RhoGAM. Patient's antibody screen was negative. -I discussed the above-mentioned with the patient, patient received RhoGAM IM -patient's urinalysis shows trace leukocyte esterase with a high amount of squamous epithelial cells, negative for nitrites, no white blood cells, UTI negative -patient states that today she picked up from the pharmacy vitamins -patient states that she has not been vomiting Differential Diagnosis Differential Diagnoses: The differential diagnosis associated with the presentation includes (Early , threatened ) Lab Data [facility] Lab Attestation statement: I reviewed the patient's lab results. 07/23/24 23:10 07/23/24 23:10 Labs: Lab Results 07/23/24 07/23/24 07/24/24 Range/Units 22:55 23:10 02:26 WBC 8.1 (4.8-10.8) X10*3/uL RBC 4.15 L (4.20-5.50) X10*6/uL Hgb 12.9 (12.0-16.0) g/dl Hct 36.6 L (37.0-47.0) % MCV 88.2 (80.0-98.0) fL MCH 31.1 (27.0-33.0) pg MCHC 35.2 H (31.0-35.0) g/dl RDW 12.1 (11.0-16.0) % Plt Count 196 (160-400) X10*3/uL MPV 10.0 (9.4-12.3) fL Immature Gran % (Auto) 0.2 (0.0-0.4) % Neut % (Auto) 47.3 (45-73) % Lymph % (Auto) 40.9 H (20-40) % [place] % (Auto) 9.5 (2-11) % Eos % (Auto) 1.6 (0-4) % Baso % (Auto) 0.5 (0-2) % Lymph # (Auto) 3.3 (1.2-4.9) X10*3/uL [place] # (Auto) 0.8 (0.1-1.2) X10*3/uL Eos # (Auto) 0.1 (0.0-0.4) X10*3/uL Baso # (Auto) 0.0 (0.0-0.2) X10*3/uL Abs Immat Gran (auto) 0.02 (0.00-0.03) X10*3/uL Absolute Neuts (auto) 3.8 (2.0-8.3) x10*3/uL Absolute Nucleated RBC 0.000 (0.0-0.012) X10*3/uL Nucleated RBC % (auto) 0.0 (0.0-0.2) /100WBC Sodium 137 (135-145) mmol/L Potassium 3.5 (3.3-5.1) mmol/L Chloride 108 (96-108) mmol/L Carbon Dioxide 22 (22-29) mmol/L Anion Gap 11 L (12-20) BUN 12 (9-16) mg/dL Creatinine 0.70 (0.5-1.4) mg/dL Estim Creat Clear Calc 113.4 Estimated GFR > 60 Random Glucose 83 (60-115) mg/dL Calcium 9.4 (8.4-10.2) mg/dL Total Bilirubin 1.0 (0.0-1.0) mg/dL Direct Bilirubin 0.4 (0.0-0.5) mg/dL AST 24 (5-31) U/L ALT 24 (0-31) U/L Alkaline Phosphatase 69 (39-117) U/L Total Protein 7.0 (6.5-8.0) g/dL Albumin 4.3 (3.5-5.0) g/dL Beta HCG, Quant 62302 mIU/mL Urine Color Yellow Urine Appearance Clear Urine pH 6.5 (5.0-9.0) Ur Specific [place] 1.010 (1.005-1.025) Urine Protein Negative (Neg-Trace) mg/dL Urine Glucose (UA) Negative (Negative) mg/dL Urine Ketones Negative (Negative) mg/dL Urine Blood Negative (Negative) Urine Nitrite Negative (Negative) Ur Leukocyte Esterase Trace H (Negative) Urine RBC 0-2 (0-2) /HPF Urine WBC 0-5 (0-5) /HPF Ur Squamous Epith Cells 6-10 (0-2) /HPF Urine Bacteria Trace (None Seen) Hyaline Casts 0-2 (0-2) /LPF Urine Test POSITIVE H (NEGATIVE) Blood Type O Negative O Negative Antibody Screen NEGATIVE Independent Interpretation I performed an independent interpretation of an: Ultrasound Interpretation: A gestational sac in a fundal location is identified in within the uterus. A yolk sac is identified. No pole visualized. No subchorionic fluid collections identified. Mean gestational sac diameter is 1.11 cm (5 week 6 day). No myometrial lesions noted. The right ovary measures 2.5 cm x 2.6 x 2.1 cm. The left ovary measures 2.07 x 2.1 x 2.2 cm. The ovaries are normal in grayscale appearance. No abnormal free peritoneal fluid collections identified. cardiac activity is not identified possibly secondary to early gestation. Critical Care Time Critical Care Time Critical Care Time: Yes Total Critical Care Time: 45 Attestation: I have personally provided critical care time. Time includes review of lab data, radiology results, discussion with consultants, and monitoring for potential decompensation. Intervention performed as documented. Discharge Plan Discharge Clinical Impression: Abdominal pain during Patient Disposition: Home, Self-Care Instructions: Abdominal Pain in (ED) Additional Instructions: Please follow-up with your primary care physician tomorrow. If you have any worsening or new symptoms, please return to the emergency room or call 911 Prescriptions: No Action nitrofurantoin monohyd/m-cryst [Macrobid] 100 mg capsule 100 mg PO Q12H 5 Days Qty: 10 0RF Rx Instructions: must administer with a meal/food phenazopyridine [Pyridium] 200 mg tablet 200 mg PO TID PRN (Reason: pain) Qty: 6 0RF sulfamethoxazole-trimethoprim [Bactrim DS] 800-160 mg tablet 1 tab PO Q12H Qty: 14 0RF doxycycline hyclate 100 mg capsule 100 mg PO BID 7 Days Qty: 14 0RF Referrals: Juma Hansen MD [Physician] - Print Language: Sinhala
--- NOTE | 2024-07-24 00:13 | MHC.EDTECH ---
This tech took over care of patient at 2300,rounded and introduced self to patient,assisted with pelvic exam at this time,swabs obtained and sent to lab,pt tolerated procedure well,pt appears comfortable at this time,boyfriend at bedside call holley in reach
[2024-07-24 00:15] LABS: Alanine Aminotransferase 24 U/L (0-31); Albumin Level 4.3 g/dL (3.5-5.0); Alkaline Phosphatase 69 U/L (39-117); Aspartate Amino Transferase 24 U/L (5-31); Bilirubin Direct 0.4 mg/dL (0.0-0.5)
[2024-07-24] MEDS: Rho(D) Immune Globulin 300 MCG SYRINGE IM (03:59)
[2024-07-24 04:16] VITALS: BP 127/78; PULSE 72; RESP 18; TEMP 36.9; O2SAT 99
[2024-07-24 14:16] LABS: Bacterial Vaginosis PCR NEGATIVE (Negative); Candida Group PCR DETECTED (Not Detect); Candida glab krusei PCR NOT DETECTED (Not Detect); Trichomonas vaginalis PCR NOT DETECTED (Not Detect)
[2024-07-24 14:46] LABS: CT PCR DETECTED (Not Detect.); NG PCR NOT DETECTED (Not Detect.)
== END 2024-07-24 04:18 | disposition home or self-care (01) ==
PROVIDERS: Emergency Provider Emergency Medicine; PCP Pediatrics Adolescent Medicine
DX: O98.811 Other maternal infectious and parasitic diseases complicating pregnancy, first trimester (principal); A74.9 Chlamydial infection, unspecified; R10.2 Pelvic and perineal pain; Z3A.01 Less than 8 weeks gestation of pregnancy; Z79.899 Other long term (current) drug therapy
CPT/HCPCS: 0352U; 36415; 76801; 76817; 80048; 80076; 81001; 81003; 81025; 84702; 85025; 86850; 86900; 86901; 87491; 87591; 96372; 99284; J2790

== ENCOUNTER 2024-07-29 06:27 | Emergency (ER) | payer BC, SELFPAY ==
[2024-07-29 06:47] VITALS: BP 128/87; PULSE 90; RESP 20; TEMP 37.1; O2SAT 99; BMI 23.8
[2024-07-29 07:25] LABS: MANUAL DIFF FLAG NO
[2024-07-29 07:27] LABS: Basophils Percent Auto 0.5 % (0-2); Eosinophils Absolute Auto 0.1 X10*3/uL (0.0-0.4); Eosinophils Percent Auto 1.3 % (0-4); Hematocrit 39.8 % (37.0-47.0); Hemoglobin 14.3 g/dl (12.0-16.0); Imm Gran Abs Auto 0.02 X10*3/uL (0.00-0.03); Imm Gran Pct Auto 0.3 % (0.0-0.4); Lymphocytes Absolute Auto 2.3 X10*3/uL (1.2-4.9); Lymphocytes Percent Auto 36.6 % (20-40); Mean Corpuscular HGB Conc 35.9 g/dl (31.0-35.0); Mean Corpuscular Hemoglobin 31.3 pg (27.0-33.0); Mean Corpuscular Volume 87.1 fL (80.0-98.0); Mean Platelet Volume 10.1 fL (9.4-12.3); Monocytes Absolute Auto 0.6 X10*3/uL (0.1-1.2); Monocytes Percent Auto 9.2 % (2-11); Neutrophils Absolute Auto 3.3 x10*3/uL (2.0-8.3); Neutrophils Percent Auto 52.1 % (45-73); Platelet Count 190 X10*3/uL (160-400); Red Blood Count 4.57 X10*6/uL (4.20-5.50); Red Cell Distribution Width 12.1 % (11.0-16.0); White Blood Count 6.3 X10*3/uL (4.8-10.8)
[2024-07-29 07:30] LABS: Appearance Urine Clear; Color Urine Yellow; Glucose Urine UA Negative (Negative); Leukocyte Esterase Urine Negative (Negative); Nitrite Urine Negative (Negative); Specific Gravity - Urine <= 1.005 (1.005-1.025); Urine Blood Negative (Negative); Urine Ketones Trace mg/dL (Negative); Urine Protein Negative (Neg-Trace)
[2024-07-29 07:46] LABS: Bacteria Urine None Seen (None Seen); Hyaline Casts Urine 0-2 /LPF (0-2); RBC Urine 0-2 /HPF (0-2); WBC Urine 0-5 /HPF (0-5)
[2024-07-29 07:52] LABS: Alanine Aminotransferase 20 U/L (0-31); Albumin Level 4.4 g/dL (3.5-5.0); Alkaline Phosphatase 69 U/L (39-117); Anion Gap 13 (12-20); Aspartate Amino Transferase 23 U/L (5-31); Bilirubin Total 1.1 mg/dL (0.0-1.0); Blood Urea Nitrogen 8 mg/dL (9-16); Calcium 9.4 mg/dL (8.4-10.2); Carbon Dioxide 19 mmol/L (22-29); Chloride 105 mmol/L (96-108); Creatinine Clr Calc Pharmacy 113.4; Estimated Glomerular Filt Rate > 60; Glucose Random 85 mg/dL (60-115); Potassium 4.2 mmol/L (3.3-5.1); Sodium 133 mmol/L (135-145); Total Protein 7.2 g/dL (6.5-8.0)
[2024-07-29 08:11] LABS: HCG Quantitative 53164 mIU/mL
--- NOTE | 2024-07-29 08:41 | ED.FEMALEGU ---
HPI - Female Genitourinary General Chief complaint: Urogenital-Female Stated complaint: uro gen female Time Seen by Provider: 07/29/24 07:21 Source: patient, RN notes reviewed and old records reviewed Mode of arrival: ambulatory Limitations: no limitations History of Present Illness ED Provider: Yasir Walker PA-C HPI Narrative: 23-year-old female who is currently 6.5 weeks , recently treated for chlamydia and yeast infection presents to the ER for evaluation of pink/white vaginal discharge. She states she took the azithromycin for her chlamydia 2 days ago. She has been using the clotrimazole cream at night. She reports the outside of her vagina is tender and she has pain when she wipes. She denies any vaginal bleeding. No pelvic pain. No fevers. She has an appointment at [facility] 08/15. MD elicited complaint: vaginal discharge Pertinent past history: STI/STD Onset (ago): day(s) Location of symptoms: perineum Consistency: constant Vaginal discharge: white and other (pink) Vaginal bleeding: none Exacerbating factors: urination Relieving factors: medication Associated symptoms: denies other symptoms Treatment prior to arrival: none Sexual activity: Yes Patient : Yes Related Data : 1 Para: 0 Previous Rx's ?Medication ?Instructions ?Recorded nitrofurantoin 100 mg PO Q12H 5 days #10 caps 03/14/21 monohydrate/macrocrystals 100 mg capsule (Macrobid) phenazopyridine 200 mg tablet 200 mg PO TID PRN pain 6 doses #6 03/14/21 (Pyridium) tabs sulfamethoxazole 800 1 tab PO Q12H #14 tabs 01/02/24 mg-trimethoprim 160 mg tablet (Bactrim DS) doxycycline hyclate 100 mg capsule 100 mg PO BID 7 days #14 caps 01/06/24 azithromycin 500 mg tablet 1,000 mg (2 x 500 mg) PO ONCE 1 07/26/24 dose #2 tabs clotrimazole 1 % vaginal cream 1 appful vaginal BEDTIME 7 days 07/26/24 #45 grams Allergies Allergy/AdvReac Type Severity Reaction Status Date / Time cephalexin [CEPHALEXIN] Allergy Intermediate ANGIOEDEMA Verified 07/29/24 06:50 latex [LATEX] Allergy Intermediate THROAT Verified 07/29/24 06:50 ITCHING montelukast [From SINGULAIR] Allergy Intermediate UNKNOWN Verified 07/29/24 06:50 sertraline [From ZOLOFT] Allergy Intermediate UNKNOWN Verified 07/29/24 06:50 Review of Systems Review of Systems: Yes all other systems are reviewed and are negative [facility] Past Medical History Medical History Hemorrhagic cyst Endometriosis Migraines Fibromyalgia Anxiety Asthma Orthostatic syncope Vaso-vagal reaction : 1 Para: 0 Social History Social History (System 10/02/21 @ 14:27 by Sally Luna) Alcohol intake: current Alcohol intake frequency: holidays/special occasions only Physical Exam Vital Signs: Vital Signs: Last Vital Signs Temp 98.7 F 07/29/24 06:47 Pulse 90 07/29/24 06:47 Resp 20 07/29/24 06:47 BP 128/87 07/29/24 06:47 Pulse Ox 99 07/29/24 06:47 O2 Del Method Room Air 07/29/24 06:47 BMI result Body Mass Index 23.8 Appearance: Alert. Oriented X3. No acute distress. Head: normocephalic, atraumatic. Eyes: Pupils equal, round and reactive to light. ENT: Pharynx normal. No tonsillar swelling or exudate. Neck: Normal inspection. Neck supple. CVS: Normal heart rate and rhythm. Pulses normal. Respiratory: No respiratory distress. Breath sounds normal. Abdomen: Soft and nontender. +BS x4 Pelvic: mild erythema of the labia minora, no blisters. vaginal canal with moderate amount of white, thick discharge, no bleeding, normal appearance of the cervix. Skin: Skin warm and dry. Normal skin color. Normal skin turgor. No rashes. Extremities: No lower extremity edema. No joint swelling. Neuro/psych: Oriented X 3. No motor deficit. No sensory deficit. CN II-XII intact. Normal speech and cognition. Medical Decision Making Medical Decision Making MDM Narrative: 23 yo female 6.5 weeks along presenting with pink/white vaginal discharge. she was treated for chlamydia 2 days ago and has been using clotrimazole at night. she has no pelvic pain or bleeding. recent U/S 07/24 showing IUP HCG today 53K from 16K. exam without vaginal bleeding. white/thick discharge c/w yeast infection. no CMT. will plan to continue clotrimazole for a full 7 days. she is on day 3 she has f/u with INDUSTRIAL ENGINEERING TECHNOLOGIST on 08/15 stable for discharge home. Differential Diagnosis Differential Diagnoses: The differential diagnosis associated with the presentation includes STI, yeast infection, threatened , UTI, HSV Lab Data MDM Lab Attestation statement: I reviewed the patient's lab results. rising beta quant, no metabolic derangement 07/29/24 07:17 07/29/24 07:17 Labs: Lab Results 07/29/24 Range/Units 07:17 WBC 6.3 (4.8-10.8) X10*3/uL RBC 4.57 (4.20-5.50) X10*6/uL Hgb 14.3 (12.0-16.0) g/dl Hct 39.8 (37.0-47.0) % MCV 87.1 (80.0-98.0) fL MCH 31.3 (27.0-33.0) pg MCHC 35.9 H (31.0-35.0) g/dl RDW 12.1 (11.0-16.0) % Plt Count 190 (160-400) X10*3/uL MPV 10.1 (9.4-12.3) fL Immature Gran % (Auto) 0.3 (0.0-0.4) % Neut % (Auto) 52.1 (45-73) % Lymph % (Auto) 36.6 (20-40) % [place] % (Auto) 9.2 (2-11) % Eos % (Auto) 1.3 (0-4) % Baso % (Auto) 0.5 (0-2) % Lymph # (Auto) 2.3 (1.2-4.9) X10*3/uL [place] # (Auto) 0.6 (0.1-1.2) X10*3/uL Eos # (Auto) 0.1 (0.0-0.4) X10*3/uL Baso # (Auto) 0.0 (0.0-0.2) X10*3/uL Abs Immat Gran (auto) 0.02 (0.00-0.03) X10*3/uL Absolute Neuts (auto) 3.3 (2.0-8.3) x10*3/uL Absolute Nucleated RBC 0.000 (0.0-0.012) X10*3/uL Nucleated RBC % (auto) 0.0 (0.0-0.2) /100WBC Sodium 133 L (135-145) mmol/L Potassium 4.2 (3.3-5.1) mmol/L Chloride 105 (96-108) mmol/L Carbon Dioxide 19 L (22-29) mmol/L Anion Gap 13 (12-20) BUN 8 L (9-16) mg/dL Creatinine 0.70 (0.5-1.4) mg/dL Estim Creat Clear Calc 113.4 Estimated GFR > 60 Random Glucose 85 (60-115) mg/dL Calcium 9.4 (8.4-10.2) mg/dL Total Bilirubin 1.1 H (0.0-1.0) mg/dL AST 23 (5-31) U/L ALT 20 (0-31) U/L Alkaline Phosphatase 69 (39-117) U/L Total Protein 7.2 (6.5-8.0) g/dL Albumin 4.4 (3.5-5.0) g/dL Beta HCG, Quant 31961 mIU/mL Urine Color Yellow Urine Appearance Clear Urine pH 7.0 (5.0-9.0) Ur Specific [place] <= 1.005 (1.005-1.025) Urine Protein Negative (Neg-Trace) mg/dL Urine Glucose (UA) Negative (Negative) mg/dL Urine Ketones Trace (Negative) mg/dL Urine Blood Negative (Negative) Urine Nitrite Negative (Negative) Ur Leukocyte Esterase Negative (Negative) Urine RBC 0-2 (0-2) /HPF Urine WBC 0-5 (0-5) /HPF Ur Squamous Epith Cells 3-5 (0-2) /HPF Urine Bacteria None Seen (None Seen) Hyaline Casts 0-2 (0-2) /LPF External Record Review External record reviewed: Outpatient record, Prior outpatient labs and Prior outpatient radiology Tests considered The following testing was considered but not selected: considered repeat U/S, low suspicion for miscarriage Prescription Management I considered prescription management with: Antibiotic and Other (antifungal) Chronic Conditions Patient?s care impacted by: Other (hsv) Critical Care Time Critical Care Time Critical Care Time: No Discharge Plan Discharge Clinical Impression: Vaginal yeast infection Patient Disposition: Home, Self-Care Instructions: Yeast Infection (ED) Additional Instructions: your exam and testing today showed ongoing yeast infection you will need to continue to the clotrimazole cream for 1 full week follow up with your INDUSTRIAL ENGINEERING TECHNOLOGIST as scheduled rest and drink plenty of fluids no sexual activity for now If you develop new or worsening symptoms call 911 or come back to the ER for further evaluation. Prescriptions: No Action nitrofurantoin monohyd/m-cryst [Macrobid] 100 mg capsule 100 mg PO Q12H 5 Days Qty: 10 0RF Rx Instructions: must administer with a meal/food phenazopyridine [Pyridium] 200 mg tablet 200 mg PO TID PRN (Reason: pain) Qty: 6 0RF sulfamethoxazole-trimethoprim [Bactrim DS] 800-160 mg tablet 1 tab PO Q12H Qty: 14 0RF doxycycline hyclate 100 mg capsule 100 mg PO BID 7 Days Qty: 14 0RF azithromycin 500 mg tablet 1,000 mg PO ONCE Qty: 2 0RF clotrimazole 1 % cream 1 appful vaginal BEDTIME 7 Days Qty: 45 0RF Referrals: Linda Yeboah MD [Primary Care Provider] - Print Language: Stateless
[2024-07-29 09:33] VITALS: BP 124/74; PULSE 77; RESP 16; TEMP 36.7; O2SAT 98
[2024-07-29 09:39] VITALS: BP 124/74; PULSE 77; RESP 16; TEMP 36.7; O2SAT 98
[2024-07-29 11:55] LABS: Bacterial Vaginosis PCR NEGATIVE (Negative); Candida Group PCR DETECTED (Not Detect); Candida glab krusei PCR NOT DETECTED (Not Detect); Trichomonas vaginalis PCR NOT DETECTED (Not Detect)
[2024-07-29 17:39] LABS: CT PCR NOT DETECTED (Not Detect.); NG PCR NOT DETECTED (Not Detect.)
== END 2024-07-29 09:39 | disposition home or self-care (01) ==
PROVIDERS: Physician Assistant; Emergency Provider Emergency Medicine; PCP Pediatrics Adolescent Medicine
DX: B37.31 Acute candidiasis of vulva and vagina (principal)
CPT/HCPCS: 0352U; 36415; 80053; 81001; 84702; 85025; 87491; 87591; 99283; 99284

== ENCOUNTER 2024-12-23 05:11 | Emergency (ER) | payer BC, SELFPAY ==
[2024-12-23] VITALS (8 sets, daily range): BP systolic 103–136; BP diastolic 60–80; PULSE 89–112; RESP 14–18; TEMP 36.6–36.9; O2SAT 98–100
[2024-12-23 06:42] LABS: MANUAL DIFF FLAG NO
[2024-12-23 06:46] LABS: Basophils Percent Auto 0.3 % (0-2); Eosinophils Percent Auto 0.5 % (0-4); Hematocrit 41.4 % (37.0-47.0); Hemoglobin 14.3 g/dl (12.0-16.0); Imm Gran Pct Auto 1.1 % (0.0-0.4); Lymphocytes Absolute Auto 0.6 X10*3/uL (1.2-4.9); Lymphocytes Percent Auto 6.3 % (20-40); Mean Corpuscular HGB Conc 34.5 g/dl (31.0-35.0); Mean Corpuscular Hemoglobin 31.2 pg (27.0-33.0); Mean Corpuscular Volume 90.4 fL (80.0-98.0); Mean Platelet Volume 10.8 fL (9.4-12.3); Monocytes Absolute Auto 0.4 X10*3/uL (0.1-1.2); Neutrophils Absolute Auto 7.6 x10*3/uL (2.0-8.3); Neutrophils Percent Auto 86.8 % (45-73); Platelet Count 142 X10*3/uL (160-400); Red Blood Count 4.58 X10*6/uL (4.20-5.50); Red Cell Distribution Width 12.5 % (11.0-16.0); White Blood Count 8.8 X10*3/uL (4.8-10.8)
[2024-12-23 06:47] LABS: Appearance Urine Cloudy; Color Urine Dark Yellow; Glucose Urine UA Negative (Negative); Leukocyte Esterase Urine Negative (Negative); Nitrite Urine Negative (Negative); PH 5.5 (5.0-9.0); Specific Gravity - Urine 1.025 (1.005-1.025); Urine Blood Negative (Negative); Urine Ketones 40 mg/dL (Negative); Urine Protein Trace mg/dL (Neg-Trace)
[2024-12-23 07:00] LABS: Alanine Aminotransferase 20 U/L (0-31); Albumin Level 3.9 g/dL (3.5-5.0); Anion Gap 14 (12-20); Aspartate Amino Transferase 28 U/L (5-31); Bilirubin Total 1.1 mg/dL (0.0-1.0); Blood Urea Nitrogen 10 mg/dL (9-16); Calcium 8.8 mg/dL (8.4-10.2); Carbon Dioxide 20 mmol/L (22-29); Chloride 109 mmol/L (96-108); Creatinine Clr Calc Pharmacy 156.5; Estimated Glomerular Filt Rate > 60; Glucose Random 88 mg/dL (60-115); Potassium 4.1 mmol/L (3.3-5.1); Sodium 139 mmol/L (135-145); Total Protein 7.2 g/dL (6.5-8.0)
[2024-12-23 07:08] LABS: Alkaline Phosphatase 110 U/L (39-117)
[2024-12-23] MEDS: Lactated Ringers 1,000 ML 999 ML IV (08:18)
--- NOTE | 2024-12-23 08:22 | PC.NURSE ---
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
[2024-12-23 08:33] LABS: Lipase 23 U/L (8-78); Magnesium 1.8 mg/dL (1.6-2.6)
[2024-12-23 08:34] LABS: HCG Quantitative 2475 mIU/mL
--- NOTE | 2024-12-23 09:07 | ED_ITS ---
HPI - Nausea/Vomiting/Diarrhea General Chief complaint: Nausea/Vomiting/Diarrhea Stated complaint: v/d/n 28 weeks Time Seen by Provider: 12/23/24 08:02 Source: patient, RN notes reviewed and old records reviewed History of Present Illness ED Provider: Roselyn Antony PA-C HPI Narrative: 24-year-old female with a past medical history migraines, fibromyalgia, anxiety, asthma, at 28 weeks gestation presenting to the ED complaining of nausea, vomiting, and nonbloody diarrhea since 01:00. Also reports dysuria x1 hour. Reports about 7 episodes of emesis. Currently follows with [facility]. Denies fever, chills, abdominal pain, vaginal bleeding/discharge, hematuria. Related Data Previous Rx's ?Medication ?Instructions ?Recorded nitrofurantoin 100 mg PO Q12H 5 days #10 caps 03/14/21 monohydrate/macrocrystals 100 mg capsule (Macrobid) phenazopyridine 200 mg tablet 200 mg PO TID PRN pain 6 doses #6 03/14/21 (Pyridium) tabs sulfamethoxazole 800 1 tab PO Q12H #14 tabs 01/02/24 mg-trimethoprim 160 mg tablet (Bactrim DS) doxycycline hyclate 100 mg capsule 100 mg PO BID 7 days #14 caps 01/06/24 azithromycin 500 mg tablet 1,000 mg (2 x 500 mg) PO ONCE 1 07/26/24 dose #2 tabs clotrimazole 1 % vaginal cream 1 appful vaginal BEDTIME 7 days 07/26/24 #45 grams Allergies Allergy/AdvReac Type Severity Reaction Status Date / Time cephalexin [CEPHALEXIN] Allergy Intermediate ANGIOEDEMA Verified 12/23/24 05:20 latex [LATEX] Allergy Intermediate THROAT Verified 12/23/24 05:20 ITCHING montelukast [From SINGULAIR] Allergy Intermediate UNKNOWN Verified 12/23/24 05:20 sertraline [From ZOLOFT] Allergy Intermediate UNKNOWN Verified 12/23/24 05:20 Review of Systems 2 Review of Systems: Yes all other systems are reviewed and are negative Constitutional: Constitutional: Reports as per HPI [facility] Past Medical History Attestation statement: The following information was validated with the patient. Source: old records reviewed Medical History Hemorrhagic cyst Endometriosis Migraines Fibromyalgia Anxiety Asthma Orthostatic syncope Vaso-vagal reaction Social History Social History Alcohol intake: current Alcohol intake frequency: holidays/special occasions only Smoked in Last 30 Days: No Use of substances other than those prescribed or required for medical reasons: No Advance Directives: No Do you have a plan to hurt others: No Plan Patient : Yes Physical Exam 2 Vital Signs: Vital Signs: Last Vital Signs Temp 97.9 F 12/23/24 08:25 Pulse 97 12/23/24 08:59 Resp 14 12/23/24 08:25 BP 117/75 12/23/24 08:59 Pulse Ox 98 12/23/24 08:25 O2 Del Method Room Air 12/23/24 08:25 BMI result Body Mass Index 30.0 Const: General: cooperative, healthy appearing and no acute distress O rientation/consciousness: patient oriented x3 Limitations: no limitations HEENT: Head: Yes normal to inspection and Yes atraumatic Ears: hearing grossly normal bilaterally General nose exam: Normal external nose present Face and sinus: Yes normal facial exam Eyes: General: appearance normal, both eyes and all related structures EOM: EOMs intact bilaterally Neck: Neck: Yes normal visual inspection and Yes no meningeal signs Resp: Effort & Inspection: normal respiratory effort and no respiratory distress Auscultation: clear to auscultation bilaterally Cardio: Rate: regular rate Heart sounds: S1 normal heart sound present and S2 normal heart sound present GI: Other: Gravid uterus Inspection: Yes normal to inspection Palpation (GI): Soft to palpation, nontender, no guarding and not rigid : General: Yes no CVA tenderness Back/Spine/Pelvis: Back: no CVA tenderness Skin: Rashes: no rashes Wounds: no wounds Neuro: General: patient oriented x3, tone normal and no meningeal signs C ranial nerves: Yes CN's II-XII intact bilaterally Gait exam (Neuro): Normal gait present Extrem: General: Yes normal to inspection Course Course Course Narrative: -911--no leukocytosis. Labs otherwise reassuring. HCG 4,475 -UA with 40 ketones, not infected -orthostatic vital signs negative > plan for transfer, [facility] transfer line contacted at 09:14 -patient accepted transfer to [facility] Dr. Matson. Recommended additional bolus of D5 LR or NS Medications Administered Generic Name Dose Route Start Last Admin Trade Name Freq PRN Reason Stop Dose Admin Dextrose/Lactated Ringer's 1,000 mls @ 100 mls/hr 12/23/24 09:30 12/23/24 09:33 D5lr IVCONT 100 mls/hr .Q10H ESTHELA Administration Discontinued Medications Generic Name Dose Route Start Last Admin Trade Name Freq PRN Reason Stop Dose Admin Diphenhydramine HCl 12.5 mg 12/23/24 08:39 12/23/24 09:28 Diphenhydramine Hcl 50 Mg/Ml Vial IVPUSH 12/23/24 08:40 12.5 mg ONCE ONE Administration Lactated Ringer's 1,000 mls @ 999 mls/hr 12/23/24 08:15 12/23/24 08:18 Lr IV 12/23/24 09:15 999 mls/hr .Q1H1M ESTHELA Administration Medical Decision Making Medical Decision Making MDM Narrative: 24-year-old female with a past medical history migraines, fibromyalgia, anxiety, asthma, at 28 weeks gestation presenting to the ED complaining of nausea, vomiting, and nonbloody diarrhea since 01:00. Also reports dysuria x1 hour. On exam initially tachycardic, pale, NAD, abdomen is soft/nontender. heart rate 156. Concern for gastroenteritis vs electrolyte abnormalities/dehydration vs viral illness. Rule out UTI. Unlikely appendicitis/diverticulitis Plan: Labs, UA, orthostatics, IVF, symptomatic treatment, re-evaluate, anticipated transfer to [facility] for monitoring Please refer to course for remaining clinical decision making, interpretation of labs/imaging results, and discussions with consultants and/or family members. Differential Diagnosis Differential Diagnoses: The differential diagnosis associated with the presentation includes As above Admission/Observation Consideration of admission/observation: Escalation of care including admission/observation considered Consult Healthcare Provider Management of the patient was discussed with: Welding Robot Operator Lab Data [facility] Lab Attestation statement: I reviewed the patient's lab results. 12/23/24 06:33 12/23/24 06:33 Labs: Lab Results 12/23/24 Range/Units 06:33 WBC 8.8 (4.8-10.8) X10*3/uL RBC 4.58 (4.20-5.50) X10*6/uL Hgb 14.3 (12.0-16.0) g/dl Hct 41.4 (37.0-47.0) % MCV 90.4 (80.0-98.0) fL MCH 31.2 (27.0-33.0) pg MCHC 34.5 (31.0-35.0) g/dl RDW 12.5 (11.0-16.0) % Plt Count 142 L D (160-400) X10*3/uL MPV 10.8 (9.4-12.3) fL Immature Gran % (Auto) 1.1 H (0.0-0.4) % Neut % (Auto) 86.8 H (45-73) % Lymph % (Auto) 6.3 L (20-40) % [facility] % (Auto) 5.0 (2-11) % Eos % (Auto) 0.5 (0-4) % Baso % (Auto) 0.3 (0-2) % Lymph # (Auto) 0.6 L (1.2-4.9) X10*3/uL [facility] # (Auto) 0.4 (0.1-1.2) X10*3/uL Eos # (Auto) 0.0 (0.0-0.4) X10*3/uL Baso # (Auto) 0.0 (0.0-0.2) X10*3/uL Abs Immat Gran (auto) 0.10 H (0.00-0.03) X10*3/uL Absolute Neuts (auto) 7.6 (2.0-8.3) x10*3/uL Absolute Nucleated RBC 0.000 (0.0-0.012) X10*3/uL Nucleated RBC % (auto) 0.0 (0.0-0.2) /100WBC Sodium 139 (135-145) mmol/L Potassium 4.1 (3.3-5.1) mmol/L Chloride 109 H (96-108) mmol/L Carbon Dioxide 20 L (22-29) mmol/L Anion Gap 14 (12-20) BUN 10 (9-16) mg/dL Creatinine 0.59 (0.5-1.4) mg/dL Estim Creat Clear Calc 156.5 Estimated GFR > 60 Random Glucose 88 (60-115) mg/dL Calcium 8.8 D (8.4-10.2) mg/dL Magnesium 1.8 (1.6-2.6) mg/dL Total Bilirubin 1.1 H (0.0-1.0) mg/dL AST 28 (5-31) U/L ALT 20 (0-31) U/L Alkaline Phosphatase 110 (39-117) U/L Total Protein 7.2 (6.5-8.0) g/dL Albumin 3.9 (3.5-5.0) g/dL Lipase 23 (8-78) U/L Beta HCG, Quant 2475 mIU/mL Urine Color Dark Yellow Urine Appearance Cloudy Urine pH 5.5 (5.0-9.0) Ur Specific [place] 1.025 (1.005-1.025) Urine Protein Trace (Neg-Trace) mg/dL Urine Glucose (UA) Negative (Negative) mg/dL Urine Ketones 40 (Negative) mg/dL Urine Blood Negative (Negative) Urine Nitrite Negative (Negative) Ur Leukocyte Esterase Negative (Negative) Radiology Impression Discussion of test interpretation with radiology: I have reviewed the radiologist's reading. External Record Review External record reviewed: Inpatient record, Office record, Outpatient record, Prior outpatient labs, Prior outpatient radiology, Primary care record and Outside ED record Tests considered The following testing was considered but not selected: As above Prescription Management I considered prescription management with: Other Chronic Conditions Patient?s care impacted by: Other Social Determinants Patient?s care significantly limited by Social Determinants of Health including: Other Social Determinant of Health Critical Care Time Critical Care Time Critical Care Time: Yes Total Critical Care Time: 40 Attestation: I have personally provided critical care time exclusive of time spent on separately billable procedures. Time includes review of lab data, radiology results, discussion with consultants, and monitoring for potential decompensation. Intervention performed as documented. Discharge Plan Discharge Clinical Impression: Gastroenteritis, Nausea and vomiting during , Diarrhea during Patient Disposition: Xfer [facility] Transfer Details: [facility] Prescriptions: No Action nitrofurantoin monohyd/m-cryst [Macrobid] 100 mg capsule 100 mg PO Q12H 5 Days Qty: 10 0RF Rx Instructions: must administer with a meal/food phenazopyridine [Pyridium] 200 mg tablet 200 mg PO TID PRN (Reason: pain) Qty: 6 0RF sulfamethoxazole-trimethoprim [Bactrim DS] 800-160 mg tablet 1 tab PO Q12H Qty: 14 0RF doxycycline hyclate 100 mg capsule 100 mg PO BID 7 Days Qty: 14 0RF azithromycin 500 mg tablet 1,000 mg PO ONCE Qty: 2 0RF clotrimazole 1 % cream 1 appful vaginal BEDTIME 7 Days Qty: 45 0RF Print Language: Indonesian
[2024-12-23] MEDS: diphenhydrAMINE HCL 50 MG/ML VIAL 12.5 MG IVPUSH (09:28)
[2024-12-23] MEDS: Dextrose 5 % and Lactated Ring 1,000 ML 100 ML IVCONT (09:33)
[2024-12-23 10:23] LABS: Influenza A PCR NEGATIVE (Negative); Influenza B PCR NEGATIVE (Negative); Resp Syncy Virus RNA Qual PCR NEGATIVE (Negative); SARS COV2 PCR INHOUSE NEGATIVE (Negative)
== END 2024-12-23 11:13 | disposition short-term general hospital (02) ==
PROVIDERS: Physician Assistant; Emergency Provider Emergency Medicine Emergency Medical Services
DX: O21.0 Mild hyperemesis gravidarum (principal); Z3A.28 28 weeks gestation of pregnancy; R10.2 Pelvic and perineal pain; K52.9 Noninfective gastroenteritis and colitis, unspecified; Z03.818 Encounter for observation for suspected exposure to other biological agents ruled out; Z79.899 Other long term (current) drug therapy
CPT/HCPCS: 0241U; 36415; 80053; 81003; 83690; 83735; 84702; 85025; 96361; 96374; 99285; J1200; J7120

== ENCOUNTER 2025-05-31 14:56 | Outpatient (REF) | payer BC, SELFPAY ==
--- OUTSIDE RECORDS SUMMARY | 2011-06-14 | XMS_ITS | Encounter Summary ---
Author Organization [facility] Address [address] [place] [id number] Phone Care Team Providers Care Vice President Safety Name Role Phone Unavailable Primary Care Provider Unavailabl e Encounter Details Date Type Department Care Team (Late st Contact Info) Description 06/14/2011 Hospital Encounter [facility],Outside Imaging [address], [place] [id number] System, Provider Not In, [place] [address] Social History Tobacco Use Types Packs/Day Years Used Date Smoking Tobacco: Never Smokeless Tobacco: Never Alcohol Use Standard Drinks/Week Comments Yes 0 (1 standard drink = 0.6 oz pur e alcohol) social Education Answer Date Recorded Are you interested in more education? Not on katherin e 01/02/2023 Are you concerned about learning? Not on file 01/02/2023 No 01/02/2023 No 01/02/2023 Digital Access Answer Date Recorded No 02/02/2023 No 02/02/2023 Reliable internet access at home? Not on file 02/02/2023 Device with a working camera? Not on file Comments No Sex and Gender Information Value Date Recorded Sex Assigned at Female 05/07/2020 4:05 PM EDT Legal Sex Female 4:47 PM EDT Gender Identity Female 05/07/2020 4:05 PM EDT Sexual Orientation Not on file documented as of this encounter Functional Status * Calculated C-SSRS Risk Score (Lifetime/Recent) Answer Date of Assessment Author No Risk Indicated 10/18/2021 12:33 PM Coco Palma RN * [place] Suicide Severity Rating Scale (Screener/Recent Self-Report) Question Answer Date of Assessment Author 1. Wish to be (Past 1 Month) No 10/18/2021 12:33 PM Wellington Oglesby RN 2. Non-Specific Active Suicidal Thoughts (Past 1 Month) No 10/18/2021 12:33 PM Wellington Oglesby RN 6. Suicidal Behavior (Lifetime) No 10/18/2021 12:33 PM Wellington Oglesby RN documented as of this encounter Plan of Treatment Not on file documented as of this encounter Procedures Procedure Name Priority Date/Time Associated Diagnosis Comments MRI BRAIN OUTSIDE (NO INTERPRETATION) Routine 06/14/2011 12:00 AM EDT documented in this encounter Results * MRI Brain Outside (No Interpretation) (06/14/2011 12:00 AM EDT) Narrative SYSTEMGENERATED, DOCUMENTATION - 10/19/2020 9:26 AM EST This study is for PACS storage only and not for interpretation. us Provider Not In System PhD IMG OUTSIDE IMAGING W /OUT INTERPRETATION Final Result documented in this encounter Visit Diagnoses Not on filedocumented in this encounter Additional Source Comments The information contained in this document represents components of the legal health record. It is not the complete legal health record.[facility]
--- OUTSIDE RECORDS SUMMARY | 2025-05-31 14:40 | XMS_ITS | Encounter Summary ---
Demographics Address [address] [place] [address] Home Phone Mobile Phone Preferred Language en Marital Status Unknown Caodaism Affiliation Unknown Race Other Race Ethnic Group Unknown Author Organization [employer] Address [address] [facility] 7[address] [place] [address] Care Team Providers Care Fence Supervisor Name Role Phone Helen Rolon MD Primary Care Provider [phone] Encounter Details Date Type Department Care Team ([facility] st Contact Info) Description 05/31/2025 2:40 PM EDT Office Visit [facility] [address] [place], [place] [phone] Collette Melo MD [address] [place], [place] [phone] Acute vaginitis (Primary Dx); UTI symptoms Social History Tobacco Use Types Packs/Day Years Used Date Smoking Tobacco: Never Passive Smoke Exposure: Never Smokeless Tobacco: Former Alcohol Use Standard Drinks/Week Comments Not Currently 0 (1 standard drink = 0.6 oz pur e alcohol) Depression Answer Date Recorded Patient Health Questionnaire-9 Score 4 03/06/2025 Patient Health Questionnaire-9 Score 4 03/06/2025 Last PHQ-9: Questionnaire Data Not on file 0 03/06/2025 Housing Stability Answer Date Recorded What is your housing situation today? I have aleida hu 03/06/[address] you li ve. Do you have problems with any of the following? None of the above 03/06/2025 Food Insecurity Answer Date Recorded Within the past 12 months, y ou worried that your food would run out before you got money to buy more: Never True 03/06/2025 Within the past 12 months,th e food you bought just didn't last and you didn't have enough money to get more: Never True Transportation Answer Date Recorded In the past 12 months, has l ack of transportation kept you from medical appts, meetings, work or from getting things needed for daily living? No 03/06/2025 Utilities Answer Date Recorded In the past 12 months, has t he electric, gas, oil or water company threatened to shut off services in your home? No 03/06/2025 Depression Answer Date Recorded Patient Health Questionnaire-2 Score 1 03/06/2025 Internet Access Answer Date Recorded Internet Access Q1 Yes 03/06/2025 Internet Access Q2 Not on file 03/06/2025 Comments No Sex and Gender Information Value Date Recorded Sex Assigned at Female 02/06/2025 2:19 PM EDT Legal Sex Female 11:10 AM EST Gender Identity Female 02/06/2025 2:19 PM EDT Sexual Orientation Don't know 02/06/2025 2: 19 PM EDT documented as of this encounter Last Filed Vital Signs Vital Sign Reading Time Taken Comments Blood Pressure 125/80 05/31/2025 2:33 PM EDT Pulse 79 05/31/2025 2:33 PM EDT Temperature - - Respiratory Rate 20 05/31/2025 2:33 PM EDT Oxygen Saturation 98% 05/31/2025 2:33 PM EDT Inhaled Oxygen Concentration - - Weight 88.5 kg (195 lb) 05/31/2025 2:33 PM EDT Height 165.1 cm (5' 5 ) 05/31/2025 2:33 PM EDT Body Mass Index 32.45 05/31/2025 2:33 PM EDT documented in this encounter Progress Notes * Deidre Mcphreson MA - 05/31/2025 2:40 PM EDT 80 * Collette Melo MD - 05/31/2025 2:40 PM EDT SUBJECTIVE Enma Fregoso is a 24 y.o. female who presents for No chief complaint on file.. HPI Note from triage reviewed: triage call returned to patient who reports several days of urinary frequency and discomfort when voiding. No blood or pus reported. No noted fever reported. Has scant vaginal discharge with itching. Disposition reviewed and patient in agreement with plan. No PCP appointment available at time of call. 3-4 days w/ h/o vaginal discharge w/ a fishy smell. Started to get a burning sensation today. Has h/o BV in the past. Pt states the symptoms are similar to when she had BV in the past. NO fever. Problem List[1] Allergies[2] Medications Ordered Prior to Encounter[3] Review of Systems Constitutional: Negative for appetite change, chills, diaphoresis and fatigue. Eyes: Negative for photophobia, redness and visual disturbance. Genitourinary: Positive for vaginal discharge. Negative for frequency, genital sores and vaginal pain. Musculoskeletal: Negative for arthralgias and back pain. OBJECTIVE Vitals: 05/31/25 1433 BP: 125/80 BP Location: Left arm Patient Position: Sitting BP Cuff Size: Adult long Pulse: 79 Resp: 20 SpO2: 98% Weight: 195 lb (88.5 kg) Height: 5' 5 (1.651 m) Physical Exam Constitutional: General: She is not in acute distress. Appearance: Normal appearance. She is obese. She is not ill-appearing, toxic- appearing or diaphoretic. Pulmonary: Breath sounds: Normal breath sounds. Abdominal: Tenderness: There is abdominal tenderness. Comments: Mild hypogastric tenderness Neurological: Mental Status: She is alert. Assessment/Plan Assessment/Plan Diagnoses and all orders for this visit: Acute vaginitis - POCT Urinalysis - metroNIDAZOLE (Flagyl) 500 MG tablet; Take 1 tablet (500 mg) by mouth 2 times daily for 7 days. - Chlamydia/N. Gonorrhoeae RNA, TMA, Urogenitial - HIV-1/2 Antigen and Antibodies, Fourth Generation, with Reflexes; Future - Hepatitis C Antibody with Reflex to HCV, RNA, Quantitative, Real-Time PCR; Future - RPR (Monitor) with Reflex to Titer; Future - Trichomonas vaginalis RNA, Qualitative, TMA, Males; Future - Culture, Urine, Routine; Future - CBC auto differential; Future Patient will be called with results. Started on empiric treatment with metronidazole. The medication will be discontinued if BV is negative. Safe sexual practices recommended. UTI symptoms - Chlamydia/N. Gonorrhoeae RNA, TMA, Urogenitial - HIV-1/2 Antigen and Antibodies, Fourth Generation, with Reflexes; Future - Hepatitis C Antibody with Reflex to HCV, RNA, Quantitative, Real-Time PCR; Future - RPR (Monitor) with Reflex to Titer; Future - Urinalysis w/reflex microscopic; Future - Trichomonas vaginalis RNA, Qualitative, TMA, Males; Future - Culture, Urine, Routine; Future - CBC auto differential; Future [1] Patient Active Problem List Diagnosis Chronic migraine without aura without status migrainosus, not intractable Excessive physiologic tremor Vasovagal syncope Lump of axillary tail of right breast Transfusion of blood product declined due to protestant reason Rh negative, antepartum HSV-2 infection Fibromyalgia Endometriosis Depressive disorder [2] Allergies Allergen Reactions Apple Juice Cephalexin Swelling Latex Itching, Other and Swelling powder Montelukast Sertraline Shrimp Extract [3] Current Outpatient Medications on File Prior to Visit Medication Sig Dispense Refill albuterol 108 (90 Base) MCG/ACT inhaler Inhale 2 puffs every 6 (six) hours if needed. Vit-Fe Fumarate-FA (WesTab Plus) 27-1 MG tablet Take 1 tablet by mouth Once per day. valACYclovir (Valtrex) 500 MG tablet Take 1 tablet by mouth Once per day. No current facility-administered medications on file prior to visit. documented in this encounter Miscellaneous Notes * Patient Education Note - Collette Melo MD - 05/31/2025 6:44 PM EDT Images from the original note were not included. Patient Education Table of Contents Irritation of the Vagina (Vaginitis): What to Know To view videos and all your education online visit, [email or web address] or scan this QR code with your smartphone. Access to this content will in one year. Irritation of the Vagina (Vaginitis): What to Know Vaginitis is irritation and swelling of the vagina. It happens when the usual balance of bacteria and yeast in the vagina changes. This change causes some types to grow too much. This overgrowth leads to vaginitis. What are the causes? Bacteria. Yeast, which is a fungus. A parasite. A virus. Low hormones in the body. This can occur during , , or after menopause. What increases the risk? Irritants, such as douches, bubble baths, scented tampons, and feminine sprays. Antibiotics. Poor hygiene. Wearing tight pants or thong underwear. Some control methods, such as diaphragms, vaginal sponges, or spermicides. Having sex without a condom or having sex with more than one person. Infections. Uncontrolled diabetes. What are the signs or symptoms? Abnormal fluid from the vagina. The fluid may be: ? White, packer, or yellow. ? Thick, white, and cheesy. ? Frothy and yellow or green. A bad smell from the vagina. Itching, pain, or swelling in the vagina. Pain during sex. Pain or burning when you pee. How is this diagnosed? This condition is diagnosed based on your symptoms, medical history, and an exam. This may include a pelvic exam. Tests may also be done. Tests may be done to: Check the pH level of your vagina. Check the fluid in your vagina. How is this treated? Treatment will depend on what is causing your vaginitis. Treatment may include: Antibiotics. Antifungal medicines. Medicines to treat symptoms if you have a virus. Your sex partner should also be treated. Estrogen medicines. Medicines to treat allergies. The medicines may be pills or creams. Follow these instructions at home: Lifestyle Keep the area around your vagina clean and dry. Avoid using soap. Rinse the area with water. Until your health care provider says it's okay: ? Do not douche. ? Do not use tampons. Use pads, if needed. ? Do not have sex. Wipe from front to back after going to the bathroom. When the provider says it's okay, practice safe sex. Use condoms. General instructions Take your medicines only as told. If you were given antibiotics, take them as told. Do not stop taking them even if you start to feelbetter. How is this prevented? Use mild, unscented products. Avoid the following products if they are scented: ? Sprays. ? Detergents. ? Tampons. ? Products for cleaning the vagina. ? Soaps or bubble baths. Let air reach your genital area. To do this: ? Wear cotton underwear. ? Do not wear underwear while you sleep. ? Do not wear tight pants and underwear or pantyhose without a cotton panel. ? Do not wear thong underwear. Take off any wet clothing, such as bathing suits, as soon as possible. Practice safe sex. Use condoms. Contact a health care provider if: You have pain in the belly or around the pelvis. You have a fever or chills. You have symptoms that last for more than 2?3 days. This information is not intended to replace advice given to you by your health care provider. Make sure you discuss any questions you have with your health care provider. Document Released: 2008-06-20 Document Updated: 2024-05-26 Document Reviewed: 2024-01-04 [employer] Patient Education ? 2024 [employer]. documented in this encounter Plan of Treatment Scheduled Orders Name Type Priority Associated Diagnoses Orde r Schedule Chlamydia/N. Gonorrhoeae RNA, TMA, Urogenitial Microbiology Routine Acute vaginitis UTI symptoms Ordered: 05/31/2025 HIV-1/2 Antigen and Antibodies, Fourth Generation, with Reflexes Lab Routine Acute vaginitis UTI symptoms Expected: 05/31/2025 (Approximate), Expires: 05/31/2026 Hepatitis C Antibody with Reflex to HCV, RNA, Quantitative, Real-Time PCR Lab Routine Acute vaginitis UTI symptoms Expected: 05/31/2025, Expires: 05/31/2026 RPR (Monitor) with Reflex to Titer Lab Routine Acute vaginitis UTI symptoms Expected: 05/31/2025, Expires: 05/31/2026 Urinalysis w/reflex microscopic Lab Routine UTI symptoms Expected: 05/31/2025, Expires: 05/31/2026 Trichomonas vaginalis RNA, Qualitative, TMA, Males Lab Routine Acute vaginitis UTI symptoms Expected: 05/31/2025, Expires: 05/31/2026 Culture, Urine, Routine Microbiology Routine Acute vaginitis UTI symptoms Expected: 05/31/2025 (Approximate), Expires: 05/31/2026 CBC auto differential Lab Routine Acute vaginitis UTI symptoms Expected: 05/31/2025 (Approximate), Expires: 05/31/2026 documented as of this encounter Procedures Procedure Name Priority Date/Time Associated Diagnosis Comments POCT URINALYSIS DIPSTICK Routine 05/31/2025 3:31 PM EDT Acute vaginitis documented in this encounter Results * (ABNORMAL) POCT Urinalysis (05/31/2025 3:31 PM EDT) Color, UA Yellow Clarity, UA Clear Glucose, UA Negative Bilirubin, UA Negative Ketones, UA Negative Spec Grav, UA 1.025 Blood, UA Positive(A) Negative, None Detected Comment:moderate pH, UA 6.5 Protein, UA Negative Urobilinogen, UA 0.2 Leukocytes, UA Trace Negative, Rare, Trace Comment:large Nitrite, UA Negative Negative, None Detected Appearance, UA clear QC Media Lot # [id number] Lot# Expiration Date [id number] Urine 05/31/2025 3:31 PM EDT Collette Melo MD POINT OF CARE TEST ENTER/ED IT ORDERABLES Final Result documented in this encounter Visit Diagnoses Diagnosis Acute vaginitis- Primary Unspecified vaginitis and vulvovaginitis UTI symptoms documented in this encounter Additional Health Concerns Assessment Noted Time PHQ-9 Depression Total Score: 4 03/06/20 25 1:26 PM EDT documented as of this encounter Care Teams Fence Supervisor Relationship Specialty Start Date End Date Helen Rolon MD [address] [place] [phone] PCP - General Family Medicine 03/06/25 documented as of this encounter
--- OUTSIDE RECORDS SUMMARY | 2025-05-31 17:24 | XMS_ITS | Clinical Summary ---
Demographics Address [address] [place] [address] Home Phone Mobile Phone Preferred Language en Marital Status Unknown Temple Affiliation Unknown Race Other Race Ethnic Group Unknown Author Organization [employer] Address [address] [facility] [address] [place] [address] Care Team Providers Care Critical Care Rn Name Role Phone Helen Rolon MD Primary Care Provider [phone] Allergies Active Allergy Reactions Criticality Noted Date Comments Apple Juice 10/18/2021 Cephalexin Swelling 03/31/2019 Latex Itching,Other,Swelling 03/31/2019 powder Montelukast 03/31/2019 Sertraline 03/31/2019 Shrimp Extract 10/18/2021 Medications albuterol 108 (90 Base) MCG/ACT inhaler Inhale 2 puffs every 6 (six) hours if needed. 10/18/2021 Active Vit-Fe Fumarate-FA (WesTab Plus) 27-1 MG tablet Take 1 tablet by mouth Once per day. 11/23/2024 Active valACYclovir (Valtrex) 500 MG tablet Take 1 tablet by mouth Once per day. 02/01/2025 Active metroNIDAZOLE (Flagyl) 500 MG tabletIndication s:Acute vaginitis Take 1 tablet (500 mg) by mouth 2 times daily for 7 days. 14 tablet 05/31/2025 Active Active Problems Problem Noted Date Diagnosed Date Transfusion of blood product declined due to synagogue reason 03/06/2025 Rh negative, antepartum 03/06/2025 HSV-2 infection 03/06/2025 Fibromyalgia 03/06/2025 Endometriosis 03/06/2025 Depressive disorder 03/06/2025 Lump of axillary tail of right breast 02/07/2025 Assessment & Plan (03/07/2025 8:38 AM EDT): RN has reached out to [facility], although we had already sent clarification around 3 weeks ago of the order, they still needed further clarification, will need to have proactive followup that imaging is getting done. Assessment & Plan (02/07/2025 10:50 AM EDT): Patient reports a painful lump in her right breast that initially resolved but has since returned. Given the patient's status and the recurrent nature of the lump, further evaluation is warranted. Plan: - Schedule ultrasound of right breast and axillary area - Follow up on ultrasound results and determine next steps based on findings - needs to be placed in schedule for new pt appt sp delivery Chronic migraine without aur a without status migrainosus, not intractable 03/06/2020 Excessive physiologic tremor 03/31/2019 Vasovagal syncope 03/31/2019 Encounters Date Type Department Care Team Description 05/31/2025 2:40 PM EDT Office Visit [facility] [address] [place] [address] Collette Melo MD Acute vaginitis (Primary Dx); UTI symptoms 05/31/2025 Travel 05/31/2025 Telephone [facility] [address] [place] [phone] Helen Rolon MD Nurse Triage 05/10/2025 Population Health Risk Score [facility] ([facility]) Department [address] [id number] Provider, Population Health Generic 03/24/2025 Patient Outreach [facility] [address] [place] [address] Helen Rolon MD Transition Of Care (Tcm) (HDF unscheduled LVM ) 03/09/2025 Telephone [facility] [address] [place] [address] Helen Rolon MD 03/06/2025 1:15 PM EDT Office Visit [facility] [address] [place] [address] Helen Rolon MD Lump of axillary tail of right breast (Primary Dx) 03/06/2025 Telephone [facility] [address] [place] [address] Helen Rolon MD 03/06/2025 Travel from Last 3 Months Immunizations Immunization Administration Dates Next Due DTaP 12/11/2005, 3,04/27/2002,02/14,2001 HPV 9-Valent 05/12/2017,01/07/2017,11/06/2016 Hep A, ped/adol, 2 dose 04/24/2020,04/23/2019 Hep B, Adolescent or Pediatric 3,04/27/2002,2001,10/20 Hib (PRP-T) 04/27/2002,02/22/2002,2001 IPV 12/11/2005, 3,02/22/2002,12/21 Influenza injectable quadriv alent IIV4 with preservative 07/20/2021,07/28/2020 Influenza injectable quadriv alent preservative free 06/04/2019,07/03/2018,06/29/2017,05/31,05/26/2015,06/24/2008,08/28/2006 ,07/12/2004,07/27/2003,06/22/2003 Influenza, seasonal, injecta ble, preservative free 07/20/2024 MMR 12/11/2005,12/08/2002 Meningococcal B, Recombinant 10/04/2018,04/01/20 18 Meningococcal MCV4P [id number] 04/01/2018 Pfizer Covid-19 Vaccine 12+ 08/30/2021,,12/16/2020 Pneumococcal Conjugate PCV 13 12/07/2008 ,02/25/2003,02/22/2002,12/21 Tdap 12/26/2024 Varicella 01/22/2007,12/08/2002 Family History Medical History Relation Name Comments Asthma Mother Relation Name Status Comments Mother Social History Tobacco Use Types Packs/Day Years Used Date Smoking Tobacco: Never Passive Smoke Exposure: Never Smokeless Tobacco: Former Tobacco Cessation:Counseling Given: Not Answered Alcohol Use Standard Drinks/Week Comments Not Currently [...] Don't know 02/06/2025 2: 19 PM EDT Last Filed Vital Signs Vital Sign Reading Time Taken Comments Blood Pressure 125/80 05/31/2025 2:33 PM EDT Pulse 79 05/31/2025 2:33 PM EDT Temperature 36.8 C (98.2 F) 03/06/2025 1:18 PM EDT Respiratory Rate 20 05/31/2025 2:33 PM EDT Oxygen Saturation 98% 05/31/2025 2:33 PM EDT Inhaled Oxygen Concentration - - Weight 88.5 kg (195 lb) 05/31/2025 2:33 PM EDT Height 165.1 cm (5' 5 ) 05/31/2025 2:33 PM EDT Body Mass Index 32.45 05/31/2025 2:33 PM EDT Plan of Treatment Health Maintenance Due Date Last Done Comments HIV Screening 2001 Disability Screening 2001 Alcohol/Substance Use Screening 2013 Family Planning (PISQ) 2016 Hepatitis C Screening 2019 Pap Smear 2022 Chlamydia and Gonorrhea Screening 04/07/2024 04/07/2023, 11/16/2019 COVID-19 Vaccine ( season) 2025 08/30/2021, 01/06/2021, 12/16/2020 Influenza Vaccine (#1) 2025 , 07/20/2021, 07/28/2020, Additional history exists Depression Screening 03/06/2026 03/06/2025, 03/06/20 25 SDOH Screening 03/06/2026 03/06/2025 Tobacco Screening 03/06/2026 03/06/2025 DTaP/Tdap/Td Vaccines (7 - Td or Tdap) 12/26/2034 12/26/2024, 12/11/2005, 02/25/2003, Additional history exists Zoster Vaccines (1 of 2) 2051 RSV Patients and Patients Aged 60 years or older (1 - 1-dose 75+ series) 2076 HIB Vaccines Aged Out 04/27/2002, 02/05, 2001 No longer eligible based on patient's age to complete this topic Hepatitis B Vaccines Completed 2002, 04/27/2002, 2001, Additional history exists IPV Vaccines Completed 12/11/2005, 11/2002, 02/22/2002, Additional history exists Pneumococcal Vaccine: Pediatrics (0 to 5 Years) and At-Risk Patients (6 to 49) Years Completed 12/07/2008, 02/25/2003, 02/22/2002, Additional history exists HPV Vaccines Completed 05/12/2017, 11/2016, 11/06/2016 Meningococcal Vaccine Completed 04/01/2018 Meningococcal B Vaccine Completed 10/04/2018, 04/01 Hepatitis A Vaccines Completed 04/24/2020, 04/23/20 19 RSV under 20 months Aged Out No longe r eligible based on patient's age to complete this topic Rotavirus Vaccines Aged Out No longer eligible based on patient's age to complete this topic Procedures Procedure Name Priority Date/Time Associated Diagnosis Comments POCT URINALYSIS DIPSTICK Routine 05/31/2025 3:31 PM EDT Acute vaginitis from Last 3 Months Results * (ABNORMAL) POCT Urinalysis (05/31/2025 3:31 [...] Media Lot # [id number] Lot# Expiration Date [id number] Urine 05/31/2025 3:31 PM EDT us Collette Melo MD POINT OF CARE TEST ENTER/ED IT ORDERABLES Final Result from Last [address] [place] [address] [place] [address] [place] [id number] [facility] [place] [id number] Care Teams Critical Care Rn Relationship Specialty Start Date End Date Helen Rolon MD [address] [place] [id number] PCP - General Family Medicine 03/06/25
--- OUTSIDE RECORDS SUMMARY | 2025-05-31 17:24 | XMS_ITS | Encounter Summary ---
Author Organization [employer] Address [address] [place] [address] Care Team Providers Care Pipe Organ Mechanic Name Role Phone Helen Rolon MD Primary Care Provider [phone] Encounter Details Date Type Department Care Team (Latest Contact Info) Description 05/31/2025 Travel Social History Tobacco Use Types Packs/Day Years [...] PM EDT documented as of this encounter Plan of Treatment Not on file documented as of this encounter Visit Diagnoses Not on filedocumented in this encounter Additional Health Concerns Assessment Noted Time PHQ-9 Depression Total Score: 4 03/06/20 25 1:26 PM EDT documented as of this encounter Care Teams Pipe Organ Mechanic Relationship Specialty Start Date End Date Helen Rolon MD [address] [place] [phone] PCP - General Family Medicine 03/06/25 documented as of this encounter
--- OUTSIDE RECORDS SUMMARY | 2025-05-31 17:24 | XMS_ITS | Encounter Summary ---
Author Organization [facility] Address [address] [place] [phone] Phone Care Team Providers Care Brush Or Broom Cutter Name Role Phone Christian Jara MD Unavailable [phone] Linda Yeboah MD Primary Care Provider [phone] Encounter Details Date Type Department Care Team (Late st Contact Info) Description 09/28/2020 Procedure Pass [facility], [address] [address] Social History Tobacco Use Types Packs/Day Years Used Date Smoking Tobacco: Never Smokeless Tobacco: Never Alcohol Use Standard Drinks/Week Comments Not Currently 0 (1 standard drink = 0.6 oz pur e alcohol) Comments No Sex and Gender Information Value Date Recorded Sex Assigned at Female 05/07/2020 4:05 PM EDT Legal Sex Female 4:47 PM EDT Gender Identity Female 05/07/2020 4:05 PM EDT Sexual Orientation Not on file documented as of this encounter Plan of Treatment Not on file documented as of this encounter Visit Diagnoses Not on filedocumented in this encounter Care Teams Brush Or Broom Cutter Relationship Specialty Start Date End Date Linda Yeboah MD [address] [place] [phone] PCP - General Adolescent Medicine 03/26/20 Christian Jara MD [address] [place] [phone] [email or web address] Pediatric Neurology 02/13/20 documented as of this encounter Additional Source Comments The information contained in this document represents components of the legal health record. It is not the complete legal health record.[facility]
--- OUTSIDE RECORDS SUMMARY | 2025-05-31 17:24 | XMS_ITS | Clinical Summary ---
Author Organization [facility] Address [address] [place] [address] Phone Care Team Providers Care Cell Tower Climber Name Role Phone Christian Jara MD Unavailable [phone] Linda Yeboah MD Primary Care Provider [phone] Allergies Active Allergy Reactions Criticality Noted Date Comments Apple 10/18/2021 Cephalexin Swelling 03/31/2019 Latex Itching,Swelling,Other (See Comments) 03/31/2019 powder Montelukast 03/31/2019 Sertraline 03/31/2019 Shrimp 10/18/2021 Medications albuterol 90 mcg/actuation inhaler Inhale 2 puffs into the lungs every 6 (six) hours as needed for wheezing or shortness of breath/dyspnea. 18 g 2 Active norethindrone-eth inyl estradiol (,) 1.5-0.03 mg TabIndications:Or al contraceptive prescribed Take 1 tablet by mouth daily. 84 tablet 3 3 Active Additional Information Patient not taking.Reported on 01/14/2024 doxycycline hyclate (VIBRAMYCIN) 100 MG capsule Take 1 capsule by mouth 2 (two) times a day. 4 Active Active Problems Problem Noted Date Diagnosed Date Chlamydia infection 01/14/2024 Overview (01/14/2024): Tested and treated at [facility] 01/06/24 Chronic migraine without aur a without status migrainosus, not intractable 03/06/2020 Excessive physiologic tremor 03/31/2019 Vasovagal syncope 03/31/2019 Social History Tobacco Use Types Packs/Day Years Used Date Smoking Tobacco: Never Smokeless Tobacco: Never Tobacco Cessation:Counseling Given: Not Answered Alcohol Use Standard Drinks/Week Comments Yes 0 [...] PM EDT Sexual Orientation Not on file Last Filed Vital Signs Vital Sign Reading Time Taken Comments Blood Pressure 118/76 01/14/2024 1:37 PM EDT Pulse 83 10/18/2021 12:31 PM EST Temperature 36.7 C (98.1 F) 10/18/2021 12:31 PM EST Respiratory Rate 16 10/18/2021 12:31 PM EST Oxygen Saturation 100% 10/18/2021 12:31 PM EST Inhaled Oxygen Concentration - - Weight 62.1 kg (137 lb) 01/14/2024 1:37 PM EDT Height 165.1 cm (5' 5 ) 01/14/2024 1:37 PM EDT Body Mass Index 22.8 01/14/2024 1:37 PM EDT Plan of Treatment Health Maintenance Due Date Last Done Comments Adult Td,Tdap Booster 2001 DEPRESSION SCREENING 2013 SMOKING Hx and SMOKELESS TOBACCO SCREENING 2014 CHLAMYDIA SCREENING 04/07/2024 04/07/2023, 0 INFLUENZA VACCINE (#1) 2025 1, 07/28/2020, 06/04/2019, Additional history exists COVID-19 VACCINE ( season) 2025 08/30/2021, 01/06/2021, 12/16/2020 PAP SMEAR 04/07/2026 04/07/2023 HIB VACCINES Aged Out 04/27/2002, 02/05, 2001 No longer eligible based on patient's age to complete this topic PNEUMOCOCCAL VACCINES (0-49 years) Completed 12/07/2008, 02/25/2003, 02/22/2002, Additional history exists HPV VACCINES Completed 05/12/2017, 11/2016, 11/06/2016 MENINGOCOCCAL VACCINES (ACWY) Completed 04/01/2018 MENINGOCOCCAL VACCINES (B) Completed 10/04/2018, HEPATITIS A VACCINES Completed 04/24/2020, 04/23/20 19 HEPATITIS C SCREENING Completed 01/14/2024 , 04/07/2023, 11/16/2019 HIV ONE-TIME SCREENING (18-65 YEARS) Completed 01/14/2024 Medical Devices Not on file Procedures Procedure Name Priority Date/Time Associated Diagnosis Comments HEPATITIS C ANTIBODY, QUALITATIVE Routine 01/14/2024 2:28 PM EDT Chlamydia infection CHLAMYDIA TRACHOMATIS AND NEISSERIA GONORRHOEAE NUCLEIC ACID DETECTION Routine 04/07/2023 3:42 PM EDT Screen for sexually transmitted diseases PAP TEST Routine 04/07/2023 12:00 AM EDT from Last 3 Months or Most Recently Relevant to Health Maintenance Results * Hepatitis C antibody, qualitative (01/14/2024 2:28 PM EDT) HCV NON-REACTIV E NON-REACTI VE [facility] Blood 01/14/2024 2:28 PM EDT 01/14/2024 2:30 PM EDT us Jany Hoffmann [facility] BLOOD ORDERABLES Final Result [facility] [address] [place] [address] * Chlamydia Trachomatis and Neisseria Gonorrhoeae Nucleic Acid Detection (04/07/2023 3:42 PM EDT) CHLAMYDIA TRACHOMATIS Not Detected Not Detected [facility] NEISERIA GONORRHOEAE Not Detected Not Detected [facility] SPECIMEN TYPE ENDOCERVICAL LEAD INGOT MOLDER [facility] Other (Endocervical) 04/07/2023 3:42 PM EDT 04/07/2023 7:05 PM EDT us Shalini John MD NON CULTURE MICROBIOLOGY [place] [facility] Result [address] [address] * Pap Test (04/07/2023 12:00 AM EDT) 04/07/2023 04/08/2023 9:1 0 AM EDT Narrative SEE NARRATIVE - 04/09/2023 3:25 PM EDT [address] [address] Book Retailer: Cary Santana MD PROPERTY MASTER Cytology Report FINAL DIAGNOSIS A. PAP SMEAR (SUREPATH) CE: SPECIMEN ADEQUACY: Satisfactory for evaluation; transformation zone present. INTERPRETATION: NEGATIVE FOR INTRAEPITHELIAL LESION OR MALIGNANCY. Reactive changes. Fungal organisms morphologically consistent with Jackie species. Electronically Signed Out By: DARLENE Go MD(ASCP) By his/her signature above, the pathologist listed as making the Final Diagnosis certifies that he/she has personally reviewed this case and confirmed or corrected the diagnosis. The Pap test is a screening test primarily for squamous cancers and precursors and has associated false-negative and false-positive results. New technologies such as liquid-based preparations may decrease but will not eliminate all false-negative results. Regular sampling and follow-up of unexplained clinical signs and symptoms are recommended to minimize false negative results. CLINICAL HISTORY Date of Last Menstrual Period: 03-09-2023 Contraceptive History: BCPs Other Clinical Conditions: Screening Pap SPECIMEN SOURCE A: PAP SMEAR (SUREPATH) CE Patient Name: ADAN VALDES : 2000 (Age: 22) Sex: F Institution: [facility] Location: [facility] Date of Collection: 04/07/2023 Date of Reported: 04/09/2023 15:25 Results to: Shalini John MD us Shalini John MD CYTOLOGY ORDERABLES Final Res ult SEE NARRATIVE from Last 3 Months or Most Recently Relevant to Health Maintenance Insurance Mashed jobs Mashed jobs [facility] Subscriber Plan / Payer (Ef fective 2018-Present) Name:Adan Valdes Relation to Subscriber:Child Name:NAIDA VALDES Date of :1900 (Home) Address: [address] [place] [address] Payer ID:[id number] (NAIC) Group ID:[id number] Type:PPO Address: [address] [place] [id number] [facility] [employer] [facility] Darwin [place] [employer] [facility] * Guarantor: ANIDA VALDES Account Type Relation to Patient Date of Phone Billing Address Personal/Family Mother Brian DIAZ [place] [employer] [facility] Mashed jobs Mashed jobs Mashed jobs [employer] [facility] [employer] [facility] Mashed jobs [employer] [facility] [employer] [facility] Care Teams Cell Tower Climber Relationship Specialty Start Date End Date Linda Yeboah MD [address] [place] [phone] PCP - General Adolescent Medicine 03/26/20 Christian Jara MD [address] [place] [id number] [email or web address] Pediatric Neurology 02/13/20 Additional Source Comments The information contained in this document represents components of the legal health record. It is not the complete legal health record.[facility]
--- OUTSIDE RECORDS SUMMARY | 2025-05-31 17:24 | XMS_ITS | Encounter Summary ---
Author Organization [facility] Address [address] [place] [address] Phone Care Team Providers Care Cow Buyer Name Role Phone Christian Jara MD Unavailable [phone] Linda Yeboah MD Primary Care Provider [phone] Encounter Details Date Type Department Care Team (Late st Contact Info) Description 10/19/2020 Ancillary Orders [facility],Outside Imaging [address] [place] [address] System, Provider Not In, PhD [address] [address] Social History Tobacco Use Types Packs/Day Years [...] on file documented as of this encounter Results * MRI Brain Outside (No Interpretation) (03/24/2015 12:00 AM EDT) Narrative SYSTEMGENERATED, DOCUMENTATION - 10/19/2020 11:17 AM EST This study is for PACS storage only and not for interpretation. us Provider Not In System PhD IMG OUTSIDE IMAGING W /OUT INTERPRETATION Final Result documented in this encounter Visit Diagnoses Not on filedocumented in this encounter Care Teams Cow Buyer Relationship Specialty Start Date End Date Linda Yeboah MD [address] [place] [address] PCP - General Adolescent Medicine 03/26/20 Christian Jara MD [address] [place] [phone] [email or web address] Pediatric Neurology 02/13/20 documented as of this encounter Additional Source Comments The information contained in this document represents components of the legal health record. It is not the complete legal health record.[facility]
--- OUTSIDE RECORDS SUMMARY | 2025-05-31 17:24 | XMS_ITS | Encounter Summary ---
Author Organization [facility] Address [address] [place] [address] Phone Care Team Providers Care Research Biostatistician Name Role Phone Christian Jara MD Unavailable [phone] Linda Yeboah MD Primary Care Provider [phone] Encounter Details Date Type Department Care Team (Late st Contact Info) Description 10/19/2020 Ancillary Orders [facility],Outside Imaging [address] [place] [address] System, Provider Not In, PhD [address] [address] Social History Tobacco Use Types Packs/Day Years [...] on filedocumented in this encounter Care Teams Research Biostatistician Relationship Specialty Start Date End Date Linda Yeboah MD [address] [place] [address] PCP - General Adolescent Medicine 03/26/20 Christian Jara MD [address] [place] [phone] [email or web address] Pediatric Neurology 02/13/20 documented as of this encounter Additional Source Comments The information contained in this document represents components of the legal health record. It is not the complete legal health record.[facility]
--- OUTSIDE RECORDS SUMMARY | 2025-05-31 17:24 | XMS_ITS | Encounter Summary ---
Author Organization [email or web address] Address [address] [place] [address] Care Team Providers Care Procurement Inspector Name Role Phone Helen Rolon MD Primary Care Provider [phone] Reason for Visit * Reason Onset Date Comments Nurse Triage 05/31/2025 Encounter Details Date Type Department Care Team (Late st Contact Info) Description 05/31/2025 Telephone [facility] [address] [place] [address] Helen Rolon MD [address] [place], [place] [id number] Nurse Triage Social History Tobacco Use Types Packs/Day Years [...] PM EDT documented as of this encounter Miscellaneous Notes * Telephone Encounter - Jenna GrigsbyNEIL - 05/31/2025 8:57 AM EDT Triage call returned to patient who reports several days of urinary frequency and discomfort when voiding. No blood or pus reported. No noted fever reported. Has scant vaginal discharge with itching.Disposition reviewed and patient in agreement with plan. No PCP appointment available at time of call. ASK/SDC/CHC today with at 240pm. Multiple (2) protocols were used on this call. Disposition for Call: See in Office or Video Visit Today Protocol Used: Urinary Symptoms (Adult) Protocol-Based Disposition: See in Office or Video Visit Today Video visit not offered Positive Triage Question: * Urinating more frequently than usual (i.e., frequency) OR new-onset of the feeling of an urgent need to urinate (i.e., urgency) * All higher-acuity triage questions were negative Care Advice Discussed: * Reasons To Call Back - You become worse Protocol Used: Vaginal Symptoms (Adult) Protocol-Based Disposition: See in Office or Video Visit Today or Tomorrow Positive Triage Question: * Moderate-Severe itching (i.e., interferes with school, work, or sleep) * All higher-acuity triage questions were negative Care Advice Discussed: * Reasons To Call Back - You become worse * Telephone Encounter - Nenita Kenney - 05/31/2025 8:41 AM EDT Symptoms: Urination Pain, Itching - No Rash, Vaginal Symptoms - Not Bleeding Outcome: Schedule an urgent appointment (within 4 hours) or talk to a nurse or provider soon Reason: Severe itching now The caller accepted this outcome. Contact pt at [phone] documented in this encounter Plan of Treatment Not on file documented as of this encounter Visit Diagnoses Not on filedocumented in this encounter Additional Health Concerns Assessment Noted Time PHQ-9 Depression Total Score: 4 03/06/20 25 1:26 PM EDT documented as of this encounter Care Teams Procurement Inspector Relationship Specialty Start Date End Date Helen Rolon MD [address] [place] [id number] PCP - General Family Medicine 03/06/25 documented as of this encounter
[2025-05-31 18:05] LABS: MANUAL DIFF FLAG NO
[2025-05-31 18:17] LABS: Hematocrit 40.3 % (37.0-47.0); Hemoglobin 14.0 g/dl (12.0-16.0); Imm Gran Abs Auto 0.03 X10*3/uL (0.00-0.03); Imm Gran Pct Auto 0.4 % (0.0-0.4); Lymphocytes Absolute Auto 2.6 X10*3/uL (1.2-4.9); Mean Corpuscular HGB Conc 34.7 g/dl (31.0-35.0); Mean Corpuscular Hemoglobin 29.4 pg (27.0-33.0); Mean Corpuscular Volume 84.5 fL (80.0-98.0); NRBC Abs Auto 0.000 X10*3/uL (0.0-0.012); NRBC Pct Auto 0.0 /100WBC (0.0-0.2); Platelet Count 220 X10*3/uL (160-400); Red Blood Count 4.77 X10*6/uL (4.20-5.50); White Blood Count 7.7 X10*3/uL (4.8-10.8)
[2025-05-31 18:26] LABS: Appearance Urine Clear; Glucose Urine UA Negative (Negative); PH 6.0 (5.0-9.0); Specific Gravity - Urine 1.010 (1.005-1.025); UMIC TRIGGER UACC YES
[2025-05-31 18:41] LABS: UACC Culture Trigger YES
[2025-06-01 04:55] LABS: HIV Num 1 0.05 S/CO (0.00-0.99); ~HepC Num1 0.08 S/CO (0.00-0.79); ~Hepatitis C Antibody Nonreactive (Nonreactive)
[2025-06-01 05:10] LABS: CT PCR NOT DETECTED (Not Detect.); NG PCR NOT DETECTED (Not Detect.)
== END 2025-05-31 14:57 | disposition home or self-care (01) ==
LOC: HO.CHCLDS 14:56
PROVIDERS: Visit Provider Internal Medicine
DX: Z11.4 Encounter for screening for human immunodeficiency virus [HIV] (principal); Z11.59 Encounter for screening for other viral diseases; Z20.2 Contact with and (suspected) exposure to infections with a predominantly sexual mode of transmission; N76.0 Acute vaginitis; R39.9 Unspecified symptoms and signs involving the genitourinary system
CPT/HCPCS: 36415; 81001; 85025; 86592; 86803; 87086; 87088; 87186; 87389; 87491; 87591